=== PATIENT | female | born 1980 | race Caucasian/White ===

== ENCOUNTER 2021-01-05 09:54 | Outpatient (CLI) | payer OTHER, SELFPAY ==
--- NOTE | ~2021-01-05 | MM_ITS ---
EXAMINATION: MM screening sarah BI w misha HISTORY: Screening mammogram TECHNIQUE: Craniocaudal and mediolateral oblique 3-D tomosynthesis images were obtained and synthetic 2-D images were generated. CAD analysis was submitted and interpreted. COMPARISON: 12/21/2019 BREAST PARENCHYMAL COMPOSITION: The breasts are heterogeneously dense, which may obscure small masses . FINDINGS: There is no evidence of suspicious mass, calcification, or architectural distortion to sugg est malignancy in either breast. There has been no suspicious interval change. IMPRESSION: 1. No mammographic evidence of malignancy. 2. Recommend routine screening mammography in one year. BI-RADS Category 1: Negative Reviewed, dictated and finalized at location A. NESS DEVELOPER
== END 2021-01-05 09:55 | disposition home or self-care (01) ==
LOC: ANHIMG 09:57
PROVIDERS: PCP Family Medicine; Visit Provider Obstetrics & Gynecology
DX: Z12.31 Encounter for screening mammogram for malignant neoplasm of breast (principal)
CPT/HCPCS: 77063; 77067

== ENCOUNTER 2022-01-07 08:01 | Outpatient (CLI) | payer OTHER, SELFPAY ==
--- NOTE | ~2022-01-07 | MM_ITS ---
EXAMINATION: MM screening sarah BI w misha HISTORY: Screening TECHNIQUE: Craniocaudal and mediolateral oblique 3-D tomosynthesis images were obtained and synthetic 2-D images were generated. CAD analysis was submitted and interpreted. COMPARISON: Comparison to multiple prior studies sequentially, with oldest reviewed study dated 11/23. BREAST PARENCHYMAL COMPOSITION: The breasts are heterogeneously dense, which may obscure small masses . FINDINGS: There is a developing asymmetry near the areola of the left breast, slightly below the leve l of the nipple on MLO view. The right breast is stable without evidence for malignancy. IMPRESSION: 1. Developing left breast asymmetry. 2. Additional mammographic views and possible breast ultrasound are recommended. BI-RADS Category 0: Incomplete: Needs additional imaging evaluation. Reviewed, dictated and finalized at location A. ACT LENS EDGE BUFFER IMPRESSION: 1. Developing left breast asymmetry. 2. Additional mammographic views and possible breast ultrasound are recommended . BI-RADS Category 0: Incomplete: Needs additional imaging evaluation.
== END 2022-01-07 08:02 | disposition home or self-care (01) ==
PROVIDERS: PCP Family Medicine; Visit Provider Obstetrics & Gynecology
DX: Z12.31 Encounter for screening mammogram for malignant neoplasm of breast (principal); R92.8 Other abnormal and inconclusive findings on diagnostic imaging of breast
CPT/HCPCS: 77063; 77067

== ENCOUNTER 2022-01-25 11:38 | Outpatient (CLI) | payer OTHER, SELFPAY ==
--- NOTE | ~2022-01-25 | MM_ITS ---
EXAMINATION: MM diagnostic sarah LT w misha HISTORY: Left breast asymmetry on screening mammogram TECHNIQUE: Additional 3-D tomosynthesis images of the left breast were performed and synthetic 2-D im ages were generated. CAD analysis was submitted and interpreted. COMPARISON: 01/07/2022, 01/05/2021, 12/21/2019 FINDINGS: There is a return to baseline fibroglandular appearance with spot compression of the left b reast in the area questioned on screening mammogram. IMPRESSION: 1. No mammographic evidence of malignancy. 2. Recommend routine screening mammography in one year. BI-RADS Category 1: Negative Reviewed, dictated and finalized at location A. D PLACEMENT DIRECTOR
== END 2022-01-25 11:39 | disposition home or self-care (01) ==
PROVIDERS: PCP Family Medicine; Visit Provider Obstetrics & Gynecology
DX: R92.8 Other abnormal and inconclusive findings on diagnostic imaging of breast (principal)
CPT/HCPCS: 77061; 77065; G0279

== ENCOUNTER 2023-01-10 08:52 | Outpatient (CLI) | payer OTHER, SELFPAY ==
--- NOTE | ~2023-01-10 | MM_ITS ---
EXAMINATION: MM screening sarah BI w misha HISTORY: Screening mammogram TECHNIQUE: Craniocaudal and mediolateral oblique 3-D tomosynthesis images were obtained and synthetic 2-D images were generated. CAD analysis was submitted and interpreted. COMPARISON: 01/25/2022 diagnostic left mammogram 01/07/2021, 01/05/2021, 12/21/2019 bilateral screening mammogram examinations BREAST PARENCHYMAL COMPOSITION: The breasts are heterogeneously dense, which may obscure small masses . FINDINGS: There is no evidence of suspicious mass, calcification, or architectural distortion to sugg est malignancy in either breast. There has been no suspicious interval change. IMPRESSION: 1. No mammographic evidence of malignancy. 2. Recommend routine screening mammography in one year. BI-RADS Category 1: Negative Reviewed, dictated and finalized at location A. GE HELPER
== END 2023-01-10 08:53 | disposition home or self-care (01) ==
LOC: ANHIMG 08:54
PROVIDERS: PCP Family Medicine; Visit Provider Obstetrics & Gynecology
DX: Z12.31 Encounter for screening mammogram for malignant neoplasm of breast (principal)
CPT/HCPCS: 77063; 77067

== ENCOUNTER 2024-01-13 08:41 | Outpatient (CLI) | payer OTHER, SELFPAY ==
--- NOTE | ~2024-01-13 | MM_ITS ---
EXAMINATION: MM screening sarah BI w misha HISTORY: Screening mammogram, family history of breast cancer in her mother. TECHNIQUE: Craniocaudal and mediolateral oblique 3-D tomosynthesis images were obtained and synthetic 2-D images were generated. CAD analysis was submitted and interpreted. COMPARISON: 01/10/2023, 01/25/2022, 01/07/2022, 01/05/2021 BREAST PARENCHYMAL COMPOSITION:Dense: The breasts are heterogeneously dense, which may obscure small masses. FINDINGS: No suspicious mass, calcification, or architectural distortion are identified in either amado ast to suggest malignancy. There has been no suspicious interval change. IMPRESSION: No mammographic evidence of malignancy. Recommend routine screening mammography in one year. BI-RADS Category 1: Negative Reviewed, dictated and finalized at [facility]. LY DAY CARER
== END 2024-01-13 08:42 | disposition home or self-care (01) ==
LOC: ANHIMG 08:43
PROVIDERS: PCP Family Medicine; Visit Provider Obstetrics & Gynecology
DX: Z12.31 Encounter for screening mammogram for malignant neoplasm of breast (principal)
CPT/HCPCS: 77063; 77067

== ENCOUNTER 2025-01-14 07:16 | Outpatient (CLI) | payer OTHER, SELFPAY ==
--- OUTSIDE RECORDS SUMMARY | 2023-07-25 08:30 | XMS_ITS ---
Author Organization [facility] dicine Address [address] [place] [phone] Care Team Providers Care Tobacco Roller Name Role Phone Dr. Nay Seay Primary Care Provider [phone] REASON FOR VISIT anxiet followup Vital Signs Temperature 98.6 degrees Fahrenheit 07/25/19 24 Blood pressure systolic 122 mm Hg 07/25/19 24 Blood pressure diastolic 76 mm Hg 024 Heart Rate 86 /min 07/25/2023 Respiratory Rate 18 /min 07/25/2023 Weight 157.41 lbs 07/25/2023 Oximetry 97 % 07/25/2023 Weight-kg 71.40 kg 07/25/2023 Encounters Encounter Location Date Provider Diagnosis [address] [address] 07/25/2023 Dr. Nay Seay Pain in left foot M79.672 ; Other physical and mental strain related to work Z56.6 ; Other specified abnormal uterine and vaginal bleeding N93.8 ; Low back pain, unspecified M54.50 ; Other melanin hyperpigmentation L81.4 ; Pain in soft tissues of limb 729.5 ; Unspecified Eustachian tube disorder, bilateral H69.93 ; Vitamin D deficiency, unspecified E55.9 ; Disorder of pigmentation, unspecified L81.9 ; Peritonsillar abscess J36 ; Bitten or stung by nonvenomous insect and other nonvenomous arthropods, initial encounter W57.XXXA ; Anxiety disorder, unspecified F41.9 ; Nasal congestion R09.81 ; Bipolar disorder, currently in remission, most recent episode unspecified F31.70 ; Pneumonia, unspecified organism J18.9 ; Pain in right elbow M25.521 ; Paresthesia of skin R20.2 ; Generalized enlarged lymph nodes R59.1 ; Allergic rhinitis, unspecified J30.9 ; Pain in right foot M79.671 ; Restless legs syndrome G25.81 ; Melanocytic nevi, unspecified D22.9 ; Other fatigue R53.83 ; Neoplasm of uncertain behavior of skin D48.5 ; Shortness of breath R06.02 ; Hyperglycemia, unspecified R73.9 ; Gastro-esophageal reflux disease without esophagitis K21.9 ; Acute upper respiratory infection, unspecified J06.9 ; Encounter for general adult medical examination without abnormal findings Z00.00 and Bronchitis, not specified as acute or chronic J40 Assessments Encounter Date Diagnosis (ICD Code) Assessment Notes Treatment Notes Treatment Clinical Notes Section Notes 07/25/2023 Pain in left foot (ICD-10 - M79.672) 07/25/2023 Other physical and mental strain related to work (ICD-10 - Z56.6) 07/25/2023 Other specified abnormal uterine and vaginal bleeding (ICD-10 - N93.8) 07/25/2023 Low back pain, unspecified (ICD-10 - M54.50) 07/25/2023 Other melanin hyperpigmentation (ICD-10 - L81.4) 07/25/2023 Pain in soft tissues of limb (ICD9-CM - 729.5) 07/25/2023 Unspecified Eustachian tube disorder, bilateral (ICD-10 - H69.93) 07/25/2023 Vitamin D deficiency , unspecified (ICD-10 - E55.9) 07/25/2023 Disorder of pigmentation, unspecified (ICD-10 - L81.9) 07/25/2023 Peritonsillar absces s (ICD-10 - J36) 07/25/2023 Bitten or stung by nonvenomous insect and other nonvenomous arthropods, initial encounter (ICD-10 - W57.XXXA) 07/25/2023 Anxiety disorder, unspecified (ICD-10 - F41.9) 07/25/2023 Nasal congestion (ICD-10 - R09.81) 07/25/2023 Bipolar disorder, currently in remission, most recent episode unspecified (ICD-10 - F31.70) 07/25/2023 Pneumonia, unspecified organism (ICD-10 - J18.9) 07/25/2023 Pain in right elbow (ICD-10 - M25.521) 07/25/2023 Paresthesia of skin (ICD-10 - R20.2) 07/25/2023 Generalized enlarged lymph nodes (ICD-10 - R59.1) 07/25/2023 Allergic rhinitis, unspecified (ICD-10 - J30.9) 07/25/2023 Pain in right foot (ICD-10 - M79.671) 07/25/2023 Restless legs syndrome (ICD-10 - G25.81) 07/25/2023 Melanocytic nevi, unspecified (ICD-10 - D22.9) 07/25/2023 Other fatigue (ICD-1 0 - R53.83) 07/25/2023 Neoplasm of uncertai n behavior of skin (ICD-10 - D48.5) 07/25/2023 Shortness of breath (ICD-10 - R06.02) 07/25/2023 Hyperglycemia, unspecified (ICD-10 - R73.9) 07/25/2023 Gastro-esophageal reflux disease without esophagitis (ICD-10 - K21.9) 07/25/2023 Acute upper respiratory infection, unspecified (ICD-10 - J06.9) 07/25/2023 Encounter for genera l adult medical examination without abnormal findings (ICD-10 - Z00.00) 07/25/2023 Bronchitis, not specified as acute or chronic (ICD-10 - J40) Plan Of Treatment Next Appt Details Provider Name:Dr. Nay abel, 04/01/2025 03:00:00 PM, [address] [place], [address], [phone] Progress Notes * Pankaj MATA:1980 (44 yo F)Acc No.[id number]:07/25/2023 Patient: Tessa Lara Provider: Jessica Seay MD :1980 A ge:42 Y S ex:Female Date:07/25/2023 Phone: Address:[address] [place], [place] [id number] Subjective: * Chief Complaints: * A nxiet followup Objective: * Vitals: B P: 122/76 mm Hg, HR: 86 /min, RR: 18 /min, Temp: 98.6 F, Oxygen sat %: 97 %, Wt: 157.41 lbs, Wt-k.40 kg. Past Vitals:* 07/13/2023 BP: 120/78 mm Hg, HR: 71 /mi n, Oxygen sat %: 99 % * 04/04/2023 BP: 122/80 mm Hg, HR: 76 /mi n, Oxygen sat %: 97 %, Wt: 155.49 lbs, Wt-k.53 kg Assessment: * Assessment: 1. P ain in soft tissues of limb - 729.5 S pecify :Src Diagnosis Name: ( - 729.5) Foot pain 2 . M elanocytic nevi, unspecified - D22.9 S pecify :Src Diagnosis Name: Benign nevus 3 . N eoplasm of uncertain behavior of skin - D48.5 4 . V itamin D deficiency, unspecified - E55.9 5 . B ipolar disorder, currently in remission, most recent episode unspecified - F31.70 6 . A nxiety disorder, unspecified - F41.9 S pecify :Src Diagnosis Name: Anxiety 7 . R estless legs syndrome - G25.81 S pecify :Src Diagnosis Name: RLS (restless legs syndrome) 8 . U nspecified Eustachian tube disorder, bilateral - H69.93 S pecify :Src Diagnosis Name: Dysfunction of both eustachian tubes 9 . A cute upper respiratory infection, unspecified - J06.9 S pecify :Src Diagnosis Name: Upper respiratory infection 1 0. P neumonia, unspecified organism - J18.9 S pecify :Src Diagnosis Name: Pneumonia 1 1. A llergic rhinitis, unspecified - J30.9 S pecify :Src Diagnosis Name: Allergic rhinitis 1 2. P eritonsillar abscess - J36 1 3. B ronchitis, not specified as acute or chronic - J40 S pecify :Src Diagnosis Name: Bronchitis 1 4. G bhavin-esophageal reflux disease without esophagitis - K21.9 ?Specify :Src Diagnosis Name: GERD (gastroesophageal reflux disease) 1 5. O ther melanin hyperpigmentation - L81.4 S pecify :Src Diagnosis Name: Lentigo 1 6. D isorder of pigmentation, unspecified - L81.9 S pecify :Src Diagnosis Name: Atypical pigmented skin lesion 1 7. P ain in right elbow - M25.521 1 8. P ain in right foot - M79.671 S pecify :Src Diagnosis Name: (M79.671 - ) Pain in right foot 1 9. P ain in left foot - M79.672 S pecify :Src Diagnosis Name: (M79.672 - ) Pain in left foot 2 0. O ther specified abnormal uterine and vaginal bleeding - N93.8 S pecify :Src Diagnosis Name: Dysfunctional uterine bleeding 2 1. S hortness of breath - R06.02 2 2. N mary congestion - R09.81 2 3. P aresthesia of skin - R20.2 S pecify :Src Diagnosis Name: Paresthesia 2 4. O ther fatigue - R53.83 S pecify :Src Diagnosis Name: Fatigue 2 5. G eneralized enlarged lymph nodes - R59.1 S pecify :Src Diagnosis Name: Lymphadenopathy 2 6. H yperglycemia, unspecified - R73.9 S pecify :Src Diagnosis Name: Hyperglycemia 2 7. B itten or stung by nonvenomous insect and other nonvenomous arthropods, initial encounter - W57.XXXA S pecify :Src Diagnosis Name: Insect bite 2 8. E ncounter for general adult medical examination without abnormal findings - Z00.00 2 9. O ther physical and mental strain related to work - Z56.6 ? S pecify :Src Diagnosis Name: Work stress 3 0. L ow back pain, unspecified - M54.50 S pecify :Src Diagnosis Name: Low back pain * Electronic signature of Dr. Nay Seay on 01/14/2025 at 07:19 AM AIR BRAKE MAN Sign off status: Pending * Provider: Jessica Seay MD Date: 0 07/25/2023 Generated for Kristie hui/Jakob/eTransmitting on: 03/16/2024 07:19 AM AIR BRAKE MAN
--- OUTSIDE RECORDS SUMMARY | 2023-12-16 08:00 | XMS_ITS ---
Author Organization [facility] dicine Address [address] [place] [phone] Care Team Providers Care Winder Operator Name Role Phone Dr. Nay Seay Primary Care Provider [phone] REASON FOR VISIT 3-4mo f/u Vital Signs Temperature 97.9 degrees Fahrenheit 12/16/19 24 Blood pressure systolic 122 mm Hg 12/16/19 24 Blood pressure diastolic 80 mm Hg 024 Heart Rate 71 /min 12/16/2023 Respiratory Rate 18 /min 12/16/2023 Height 71.00 in 12/16/2023 Weight 151.59 lbs 12/16/2023 BMI 21.14 kg/m2 12/16/2023 Oximetry 99 % 12/16/2023 Height-cm 180.34 cm 12/16/2023 Weight-kg 68.76 kg 12/16/2023 Encounters Encounter Location Date Provider Diagnosis [address] [address] 12/16/2023 Dr. Nay Seay Anxiety disorder, unspecified F41.9 ; Acute atopic conjunctivitis, unspecified eye H10.10 ; Other specified conditions associated with female genital organs and menstrual cycle N94.89 ; Low back pain, unspecified M54.50 ; Insomnia, unspecified G47.00 and Other physical and mental strain related to work Z56.6 Assessments Encounter Date Diagnosis (ICD Code) Assessment Notes Treatment Notes Treatment Clinical Notes Section Notes 12/16/2023 Anxiety disorder, unspecified (ICD-10 - F41.9) 12/16/2023 Acute atopic conjunctivitis, unspecified eye (ICD-10 - H10.10) 12/16/2023 Other specified conditions associated with female genital organs and menstrual cycle (ICD-10 - N94.89) 12/16/2023 Low back pain, unspecified (ICD-10 - M54.50) 12/16/2023 Insomnia, unspecified (ICD-10 - G47.00) 12/16/2023 Other physical and mental strain related to work (ICD-10 - Z56.6) Plan Of Treatment Next Appt Details Provider Name:Dr. Nay abel, 04/01/2025 03:00:00 PM, [address] [place], [address], [phone] Progress Notes * Nafisa MATAaDOB:1980 (44 yo F)Acc No.[id number]:12/16/2023 Progress Notes Patient: Tessa Lara Provider: Jessica Seay MD :1980 A ge:43 Y S ex:Female Date:12/16/2023 Phone: Address:[address] [place], [place] [phone] Subjective: * Chief Complaints: * 3 -4mo f/u Objective: * Vitals: B P: 122/80 mm Hg, HR: 71 /min, RR: 18 /min, Temp: 97.9 F, Oxygen sat %: 99 %, Ht: 71.00 in, Wt: 151.59 lbs, Wt-k.76 kg, Ht-cm: 180.34 cm, BMI: 21.14 Index. Past Vitals:* 07/25/2023 BP: 122/76 mm Hg, HR: 86 /mi n, Oxygen sat %: 97 %, Wt: 157.41 lbs, Wt-k.40 kg * 07/13/2023 BP: 120/78 mm Hg, HR: 71 /mi n, Oxygen sat %: 99 % Assessment: * Assessment: 1. A nxiety disorder, unspecified - F41.9 S pecify :Src Diagnosis Name: Anxiety 2 . I nsomnia, unspecified - G47.00 S pecify :Src Diagnosis Name: Insomnia 3 . A cute atopic conjunctivitis, unspecified eye - H10.10 S pecify :Src Diagnosis Name: Allergic conjunctivitis 4 . O ther specified conditions associated with female genital organs and menstrual cycle - N94.89 S pecify :Src Diagnosis Name: Pelvic congestion syndrome 5 . O ther physical and mental strain related to work - Z56.6 S pecify :Src Diagnosis Name: Work stress 6 . L ow back pain, unspecified - M54.50 S pecify :Src Diagnosis Name: Lumbar back pain * Electronic signature of Dr. Nay Seay on 01/14/2025 at 07:19 AM RUSSIAN HISTORY PROFESSOR Sign off status: Pending * Provider: Jessica Seay MD Date: Generated for Kristie hui/Jakob/Lucianoitting on: 03/16/2024 07:19 AM RUSSIAN HISTORY PROFESSOR
--- OUTSIDE RECORDS SUMMARY | 2024-01-21 03:00 | XMS_ITS ---
Author Organization [facility] dicine Address [address] [place] [address] Care Team Providers Care Secondary School Registrar Name Role Phone Dr. Nay Seay Primary Care Provider [phone] Migration, Provider Unavailable Unavailable REASON FOR VISIT EMR-Oswaldo Encounters Encounter Location Date Provider Diagnosis [facility] [address] [place] [address] 01/21/2024 Provider Migration Plan Of Treatment Medication Medication Name Sig Start Date Stop Date Notes Rizatriptan Benzoate 10 MG Tablet Oral; Duration: 30 11/12/2020 12/11/2020 Baltimore Oil oral; Duration: 0 08/27/2021 11/14/2022 ,disc ontinuereason:D iscontinued *Reorder from [facility] for eRx and Interaction Alerts* Ipratropium [place]pton 0.06 % Solution 1 Nasal three times a day; Duration: 30 08/27/2021 09/02/2021 ,discontinuereason:I nsurance Coverage kllswny-ulva-ywayj-oreg -capryl oral; Duration: 0 08/27/2021 11/14/2022 ,discontinuere ason:D iscontinued *[facility]order from [facility] for eRx and Interaction Alerts* Multivitamin oral; Duration: 0 10/16/2020 11/14/2022 ,disc ontinuereason:D iscontinued *Pick strength-form from [facility] for eRX* Naprosyn 500 MG Tablet 1 Oral two times a day; Duration: 0 02/12/2022 11/14/2022 ,discontinuereason:D iscontinued Pantoprazole Sodium 40 MG Tablet Delayed Release 1 Oral every day; Duration: 30 08/27/2021 01/18/2022 ,discontinuereason:D iscontinued Azithromycin 250 MG Tablet Oral every day; Duration: 1 03/28/2023 03/28/2023 dexAMETHasone 6 MG Tablet 1 Oral every day; Duration: 3 03/28/2023 03/30/2023 Tretinoin 0.05 % Cream External; Duratio n: 20 10/08/2022 10/27/2022 Probiotic oral; Duration: 0 10/16/2020 11/14/2022 ,discon tinuereason:D iscontinued *Pick strength-form from [employer] for eRX* Apple Cider Vinegar oral; Duration: 0 10/16/2020 ,discontinuereason:D iscontinued *Pick strength-form from [facility] for eRX* clonazePAM 0.5 MG Tablet 1 Oral two times a day; Duration: 11/11/2023 11/11/2023 Rx Refill Request,discontinuer sandy:Refilled Fluticasone Propionate 50 MCG/ACT Suspension Nasal; Duration: 30 08/08/2023 10/06/2023 Cranberry oral; Duration: 0 10/16/2020 11/14/2022 ,discon tinuereason:D iscontinued *Pick strength-form from [employer] for eRX* busPIRone HCl 5 MG Tablet 1 Oral three times a day; Duration: 30 11/15/2022 12/23/2022 ,discontinuereason:A llergic Reaction,PRN Reason:for anxiety Gabapentin 100 MG Capsule 1 Oral every night at bedtime; Duration: 30 02/12/2022 07/28/2022 ,discontinuereason:D iscontinued Azelastine HCl 137 MCG/SPRAY Solution Nasal; Duration: 30 10/12/2021 11/10/2021 Vitamin D2 oral; Duration: 0 10/16/2020 11/14/2022 ,discon tinuereason:D iscontinued *Pick strength-form from [employer] for eRX* Mirena intrauterine; Duration: 0 10/16/2020 10/19/2020 ,discontinuereason:D iscontinued *Reorder from [facility] for eRx and Interaction Alerts* Symbicort 160-4.5 MCG/ACT Aerosol 1 Inhalation two times a day; Duration: 0 04/06/2023 07/24/2023 ,discontinuereason:D iscontinued Benzonatate 200 MG Capsule 1 Oral three times a day; Duration: 0 03/28/2023 03/28/2023 ,PRN Reason:for cough Next Appt Details Provider Name:Dr. Nay abel, 04/01/2025 03:00:00 PM, [address] [place], [address], [phone] Progress Notes * Alaina MATAB:1980 (44 yo F)Acc No.[id number]:01/21/2024 Patient: Tessa BURROWS :1980 A ge:43 Y S ex:Female Phone: Address:[address] [place] [address], [phone] * Refills Stop Azelastine HCl Solution, 137 MCG/SPRAY, Nasal, 1, 0 Stop clonazePAM Tablet, 0.5 MG, Oral, 30, 1, two times a day, 15 Stop Fluticasone Propionate Suspension, 50 MCG/ACT, Nasal, 16, 30 Stop Benzonatate Capsule, 200 MG, Oral, 30, 1, three times a day, 0 Stop clonazePAM Tablet, 0.5 MG, Oral, 90, 1, two times a day, 90 Stop clonazePAM Tablet, 0.5 MG, Oral, 30, 1, two times a day, 30 Stop clonazePAM Tablet, 0.5 MG, Oral, 30, 1, two times a day, 30 Stop Fluticasone Propionate Suspension, 50 MCG/ACT, Nasal, 0 Stop Fluticasone Propionate Suspension, 50 MCG/ACT, Nasal, 1, 1, two times a day, 30 Stop Gabapentin Capsule, 100 MG, Oral, 30, 1, every night at bedtime, 30 Stop Tretinoin Cream, 0.05 %, External, 1, every day, 0 Stop Mirena, intrauterine, 0 Stop Azelastine HCl Solution, 137 MCG/SPRAY, Nasal, 30, 30 Stop Fluticasone Propionate Suspension, 50 MCG/ACT, Nasal, 16, 30 Stop Azithromycin Tablet, 250 MG, Oral, 6, every day, 1 Stop clonazePAM Tablet, 0.5 MG, Oral, 30, 1, two times a day, 30 Stop Rizatriptan Benzoate Tablet, 10 MG, Oral, 11, 1, 0 Stop clonazePAM Tablet, 0.5 MG, Oral, 90, 1, two times a day, 90 Stop Cranberry, oral, 0 Stop dexAMETHasone Tablet, 6 MG, Oral, 3, 1, every day, 3 Stop Naprosyn Tablet, 500 MG, Oral, 28, 1, two times a day, 14 Stop Naprosyn Tablet, 500 MG, Oral, 60, 1, two times a day, 0 Stop Pantoprazole Sodium Tablet Delayed Release, 40 MG, Oral, 30, 1, every day, 30 Stop Tretinoin Cream, 0.05 %, External, 20, 20 Stop Multivitamin, oral, 0 Stop [place] Oil, oral, 0 Stop jznuejb-pdyj-zaxvq-oreg-capryl, oral, 0 Stop busPIRone HCl Tablet, 5 MG, Oral, 90, 1, three times a day, 30 Stop clonazePAM Tablet, 0.5 MG, Oral, 0 Stop Fluticasone Propionate Suspension, 50 MCG/ACT, Nasal, 16, 30 Stop Tretinoin Cream, 0.05 %, External, 20, 20 Stop clonazePAM Tablet, 0.5 MG, Oral, 90, 1, two times a day, 90 Stop Fluticasone Propionate Suspension, 50 MCG/ACT, Nasal, 16, 30 Stop Ipratropium Campton Solution, 0.06 %, Nasal, 1, 1, three times a day, 30 Stop Rizatriptan Benzoate Tablet, 10 MG, Oral, 11, 30 Stop Vitamin D2, oral, 0 Stop Apple Cider Vinegar, oral, 0 Stop Fluticasone Propionate Suspension, 50 MCG/ACT, Nasal, 16, 30 Stop Probiotic, oral, 0 Stop clonazePAM Tablet, 0.5 MG, Oral, 30, 1, two times a day, 30 Stop clonazePAM Tablet, 0.5 MG, Oral, 90, 1, two times a day, 90 Stop clonazePAM Tablet, 0.5 MG, Oral, 90, 1, two times a day, 90 Stop Fluticasone Propionate Suspension, 50 MCG/ACT, Nasal, 1, 1, two times a day, 30 Stop Symbicort Aerosol, 160-4.5 MCG/ACT, Inhalation, 1, 1, two times a day, 0 Subjective: * Chief Complaints: * E MR-Oswaldo Objective: Past Vitals:* 12/16/2023 BP: 122/80 mm Hg, HR: 71 /mi n, Oxygen sat %: 99 %, Wt: 151.59 lbs, Wt-k.76 kg * 07/25/2023 BP: 122/76 mm Hg, HR: 86 /mi n, Oxygen sat %: 97 %, Wt: 157.41 lbs, Wt-k.40 kg * * Date:
--- OUTSIDE RECORDS SUMMARY | 2024-01-22 03:00 | XMS_ITS ---
Author Organization [facility] Address [address] [place] [address] Care Team Providers Care Box Packer Name Role Phone Dr. Nay Seay Primary Care Provider [phone] Migration, Provider Unavailable Unavailable Allergies Allergen (clinical drug ingredient) Drug/Non Drug Allergy documented on EMR Reaction Allergy Type Onset Date Status buspirone busPIRone headache Drug Allergy 12/23/2022 Active Substance with penicillin structure and antibacterial mechanism of action (substance) Penicillins Unknown Drug Allergy 10/16/2020 Active REASON FOR VISIT EMR-[facility] Medications Medication SIG (Take, Route, Frequency, Duration) Notes Start Date End Date Status Doxepin HCl 10 MG Capsule 1 Oral every e vening; Duration: 30 12/16/2023 03/14/2024 Active Olopatadine HCl 0.2 % Solution 1 Ophthalmic every day; Duration: 0 12/16/2023 Active Fluticasone Propionate 50 MCG/ACT Suspension Nasal; Duration: 0 12/16/2023 Act chema clonazePAM 0.5 MG Tablet 1 Oral two time s a day; Duration: 15 01/18/2024 02/01/2024 Active Social History Social History Additional Details Category Social Info Options Details Migrated Social History Migrated Social History Tobacco history:Current every day smoker ,notes : Smoking again in 2022 , Frequency of drinks:1-4 drinks per week , Alcohol history:Currently drinks alcohol , Has the patient used marijuana?:Yes ,notes : current , Number of cigarettes/day:10 (Half a pack) ,notes : Delete Reason: quit smoking Jan 12 Encounters Encounter Location Date Provider Diagnosis [facility] [address] [place] [address] 01/22/2024 Provider Migration Plan Of Treatment Next Appt Details Provider Name:Dr. Nay abel, 04/01/2025 03:00:00 PM, [address] [facility], [place], [address], [phone] Progress Notes * Alaina MATAB:1980 (44 yo F)Acc No.[id number]:01/22/2024 Patient: Tessa BURROWS :1980 A ge:43 Y S ex:Female Phone: Address:[address] [place] [address], [phone] Subjective: * Chief Complaints: * E MR-Oswaldo * Surgical History: Hernia repair 05/24/2016 Mammogram 12/21/2019 * Family History: M other: Cancer ,Notes : breast cancer. * Social History: M igrated Social History: M igrated Social History: Tobacco history:Current every day smoker ,notes : Smoking again in 2022,Frequency of drinks:1-4 drinks per week,Alcohol history:Currently drinks alcohol,Has the patient used marijuana?:Yes ,notes : current,Number of cigarettes/day:10 (Half a pack) ,notes : Delete Reason: quit smoking Jan 12. * Medications: T akingclonazePAM 0.5 MG Tablet 1 Oral two times a day , stop date 4Doxepin HCl 10 MG Capsule 1 Oral every evening , stop date 03/14/2024Olopatadine HCl 0.2 % Solution 1 Ophthalmic every day Fluticasone Propionate 50 MCG/ACT Suspension Nasal Taking clonazePAM 0.5 MG Tablet 1 Oral two times a day , stop date 02/01/2024Taking Doxepin HCl 10 MG Capsule 1 Oral every evening , stop date 03/14/2024Taking Olopatadine HCl 0.2 % Solution 1 Ophthalmic every day Taking Fluticasone Propionate 50 MCG/ACT Suspension Nasal * Allergies: b usPIRone: headache - Allergy - Onset Date 3Penicillins: Allergy - Onset Date 10/16/2020 Objective: Past Vitals:* 12/16/2023 BP: 122/80 mm Hg, HR: 71 /mi n, Oxygen sat %: 99 %, Wt: 151.59 lbs, Wt-k.76 kg * 07/25/2023 BP: 122/76 mm Hg, HR: 86 /mi n, Oxygen sat %: 97 %, Wt: 157.41 lbs, Wt-k.40 kg * * Date:
--- NOTE | ~2025-01-14 | MM_ITS ---
EXAMINATION: MM screening sarah BI w misha HISTORY: Screening TECHNIQUE: Craniocaudal and mediolateral oblique 3-D tomosynthesis images were obtained and synthetic 2-D images were generated. CAD analysis was submitted and interpreted. COMPARISON: Comparison to multiple prior studies sequentially, with oldest reviewed study dated 12/21/2019. BREAST PARENCHYMAL COMPOSITION: Dense: The breasts are heterogeneously dense, which may obscure small masses FINDINGS: There are developing clustered indeterminate calcifications in the upper outer quadrant of the right breast, middle third. No suspicious masses or architectural distortion. The left breast is stable without evidence for malignancy. IMPRESSION: 1. Developing clustered indeterminate right breast calcifications, upper outer quadrant, middle third. 2. Magnification views are recommended. BI-RADS Category 0: Incomplete: Needs additional imaging evaluation. Reviewed, dictated and finalized at location O. BIN TENDER
--- OUTSIDE RECORDS SUMMARY | 2025-01-14 07:19 | XMS_ITS | Clinical Summary ---
Author Organization [facility] Address [address] [place] [address] Care Team Providers Care Ship'S Electronic Warfare Officer Name Role Phone Unavailable Primary Care Provider Unavailabl e Source Comments [facility],non-owned Affiliates and Associated Physician Practices is amultiple site organization consisting of ambulatory clinics and hospital sitesin [place], [place], [place] and [place]. This disclosure is being madepursuant to the Care Everywhere program and may not contain all information available regarding this patient. 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 Gender Identity Not on file Sexual Orientation Not on file Plan of Treatment Health Maintenance Due Date Last Done Comments COLOGUARD (AGES 45-75) - COL ON CA SCREENING 1980 COLON MONITORING 1978 COLONOSCOPY - COLON CA SCREENING 1978 CT COLONOGRAPHY - COLON CA SCREENING 1980 Colorectal Cancer Screening 1980 FIT - COLON CA SCREENING 1978 FLEX SIG - COLON CA SCREENING 1978 LIPID TESTING 1980 MAMMOGRAM 1978 HIV SCREENING 1993 HEPATITIS C SCREENING 07/31/1996 DTAP/TDAP/TD VACCINES (1 - Tdap) 1997 HEPATITIS B VACCINE (1 of 3 - 19+ 3-dose series) 1997 Cervical Cancer Screening 08/06/1999 PAP SMEAR 08/06/1999 PAP with HPV 2008 DEPRESSION SCREENING 02/22/2024 COVID-19 VACCINE (1 - 2024-2 6 season) 2024 INFLUENZA VACCINE (#1) 2024 ZOSTER VACCINE (1 of 2) 2028 HIB VACCINE Aged Out No longer eligi ble based on patient's age to complete this topic HPV VACCINE Aged Out No longer eligi ble based on patient's age to complete this topic MENINGOCOCCAL (Group B) VACC INE SHARED DECISION-MAKING Aged Out No longer eligibl e based on patient's age to complete this topic MENINGOCOCCAL GROUPS A/C/Y/W VACCINE Aged Out No longer eligible b ased on patient's age to complete this topic PNEUMOCOCCAL VACCINE Aged Out No long er eligible based on patient's age to complete this topic Insurance
--- OUTSIDE RECORDS SUMMARY | 2025-01-14 07:19 | XMS_ITS | Patient Health Record ---
Author Organization [facility] dicine Address [address] [place] [address] Care Team Providers Care Certified Surgical Technologist Name Role Phone Dr. Nay Seay Primary Care Provider [phone] Migration, Provider Unavailable Unavailable Allergies Allergen (clinical drug ingredient) Drug/Non Drug Allergy documented on EMR Reaction Allergy Type Onset Date Status buspirone busPIRone headache Drug Allergy 12/23/2022 Active Substance with penicillin structure and antibacterial mechanism of action (substance) Penicillins Unknown Drug Allergy 10/16/2020 Active Results Component Value Reference Range Flag Notes INACTIVE Morphology Reviewed date:10/06/2024 01:41:28 PM Interpretation: Performing Lab: Notes/Report: Test Performed by: [place] [id number] Retail Beauty Specialist: Don Michele DO Plt Estimation Adequate Adequate Platelet Clumps 3+ A Hemoglobin A1c {Glycosylated } Reviewed date:10/06/2024 01:41:27 PM Interpretation: Performing Lab: Notes/Report: Test Performed by: [address] [id number] Retail Beauty Specialist: Don Michele DO Hemoglobin A1c 5.3 <=6.4 % Hemoglobin A1C < 5.7% = Normal 5.7-6.4% = Increased risk for future diabetes >=6.5% = Diabetes eAvg Glucose 105 <=117 mg/dL eAG Reference Range <117 mg/dL = Normal 117-137 mg/dL = Increased Risk For Future Diabetes >137 mg/dL = Diabetes T4 Free Reviewed date:10/06/2024 01:41:27 PM Interpretation: Performing Lab: Notes/Report: Test Performed by: [place] [id number] Retail Beauty Specialist: Don Michele DO T4 Free 0.85 0.60-1.70 ng/dL CBC w Auto Diff Reviewed date:10/06/2024 01:41:27 PM Interpretation: Performing Lab: Notes/Report: Test Performed by: [place] [id number] Retail Beauty Specialist: Don Michele DO WBC 5.1 4.0-11.7 K/mcL RBC 4.66 3.80-5.41 x10*6/mcL Hgb 14.8 11.3-15.2 g/dL Hct 43.6 33.2-45.3 % MCV 93.5 79.5-98.1 fL MCH 31.8 27.0-34.2 pg MCHC 34.0 31.8-35.3 g/dL RDW 12.6 12.0-16.4 % Platelets Not Performed 149-393 Quantitative platelet count not reported due to the presence of many platelet clumps, which tend to render the total count un-sales support representative of in vivo levels. Suggest redraw in a Blue-Top tube. MPV Not Performerd 7.0-11.0 fL Neutro Auto 43.0 45.3-79.0 % L Lymph Auto 45.6 11.8-45.9 % [place] Auto 7.7 4.4-12.0 % Eosinophil Auto 2.4 0.0-6.3 % Basophil Auto 1.3 0.2-1.6 % Neutro Absolute 2.2 2.4-8.4 x10*3/mcL L Lymph Absolute 2.3 0.8-3.7 x10*3/mcL [place] Absolute 0.4 0.3-1.1 x10*3/mcL Eos Absolute 0.1 0.0-0.5 x10*3/mcL Baso Absolute 0.1 0.0-0.1 x10*3/mcL Comprehensive Metabolic Pane l Reviewed date:10/06/2024 01:41:27 PM Interpretation: Performing Lab: Notes/Report: Test Performed by: [address] [address] Retail Beauty Specialist: Don Michele DO Glucose Lvl 81 74-109 mg/dL ADA risk stratification for diabetes <100 mg/dL = Normal 100-125 mg/dL = Increased risk for future diabetes >=126 mg/dL = Diabetes, if on more than one testing occasion BUN 16 7-25 mg/dL Creatinine Lvl 0.83 0.60-1.20 mg/dL eGFR CKD-EPI 88 >=90 mL/min/1.73 m2 L The CKD-EPI equation is validated in individuals 18 years of age and older. It is less accurate in patients with extremes of muscle mass, restriction of dietary protein, ingestion of creatine, extra-renal metabolism of creatinine, or treatment with medications that affect renal tubular creatinine secretion. GFR Categories in Chronic Kidney Disease (CKD) GFR GFR (mL/min/1.73 Category: square meters): Interpretation: G1 90 or greater Normal or high* G2 60-89 Mild decrease* G3a 45-59 Mild to moderate decrease G3b 30-44 Moderate to severe decrease G4 15-29 Severe decrease G5 14 or less Kidney failure *In the absence of evidence of kidney damage, neither GFR category G1 nor G2 fulfill the criteria for CKD (Kidney Int Suppl 2013;3:1-150) Calcium Lvl 9.3 8.6-10.3 mg/dL Sodium Lvl 138 136-145 mmol/L Potassium Lvl 4.3 3.5-5.1 mmol/L Chloride Lvl 105 98-107 mmol/L CO2 28 21-31 mmol/L Anion Gap 5.4 <=16.0 mmol/L Alk Phos 23 34-104 unit/L L Bilirubin Total 1.0 0.3-1.0 mg/dL Albumin Lvl 4.4 3.5-5.2 g/dL Protein Total 6.4 6.4-8.9 g/dL Albumin/Globulin Ratio 2.2 1.1-2.5 ALT 11 7-52 unit/L AST 18 13-39 unit/L Lipid Panel {Chol, Trig, HDL , LDL} Reviewed date:10/06/2024 01:41:27 PM Interpretation: Performing Lab: Notes/Report: Test Performed by: [place] [address] Retail Beauty Specialist: Don Michele DO Cholesterol Total 191 <=199 mg/dL Triglycerides 52 0-149 mg/dL Triglyceride Reference Ranges: <150 mg/dL Normal 150 - 199 mg/dL Borderline High 200 - 499 mg/dL High >=500 mg/dL Very High LDL 106 <=100 mg/dL H LDL Optimal: <100 Near or above optimal: 100-129 Borderline high: 130-159 High: 160-189 Very high: >=190 Coronary heart disease risk factors should be considered when determining LDL goals. Please refer to ATPIII guidelines for further information. If LDL is not calculated, please call the lab to add on the direct LDL methodology, if desired. HDL 75 23-92 mg/dL Non HDL Cholesterol 117 <=130 mg/dL Chol/HDL 3 0-5 Thyroid Stimulating Hormone Reviewed date:10/06/2024 01:41:27 PM Interpretation: Performing Lab: Notes/Report: Test Performed by: [place] [address] Retail Beauty Specialist: Don Michele DO TSH 1.28 0.45-5.33 mcIU/mL Reason For Referral Reason Dr. Felix in [facility] please - updated today 11/05 with pt's choice Diagnosis 1 Screening for colon cancer (Z12.11) Referral Organization [facility] Referring Provider First Name Dr. Tee Referring Provider Last Name [place] Referring Provider [facility] Referred Provider Specialty Gastroentero logy General Notes Adelita Bauman 0 11/05/2024 02:46:25 PM CDT >Referral faxed to Dr. Felix [phone], Josey Doss 12/25/2024 09:18:59 AM [employer] >consult note in chart. Referral Priority Routine Referral Appointment Date 12/25/2024 Medications Medication SIG (Take, Route, Frequency, Duration) Notes Start Date End Date Status buPROPion HCl ER (XL) 150 MG Tablet Extended Release 24 Hour TAKE 1 TABLET BY MOUTH EVERY DAY IN THE MORNING; Duration: 90 Active clonazePAM 0.5 MG Tablet 2 tablets in the morning Orally Once a day; Duration: 30 days change in directions for next RF. 10/10/2024 Active Fluticasone Propionate 50 MCG/ACT Suspension 1 spray in each nostril Nasal Twice a day; Duration: 90 days Active Immunizations Vaccine Route Administration Date Status Comme nts Tdap Unknown 02/22/2009 Administered ,sourcename : Historical information -from other registry Source [facility] Code: : Tdap Unknown 05/23/2020 Administered ,sourcename : Historical information -from other registry Source [facility] Code: : Social History Tobacco Use: Social History Observation Description Date Details (start date - stop date) Current Smoker NA - NA Social History Drug/Alcohol: Social Info Question Answer Notes AUDIT-C (Standard) Did you have a drink containing alcohol in the past year? Yes How often did you have a drink containing alcohol in the past year? Monthly or less (1 point) How many drinks did you have on a typical day when you were drinking in the past year? 1 or 2 drinks (0 point) How often did you have six or more drinks on one occasion in the past year? Never (0 point) Points 1 Interpretation Negative Tobacco Use: Social Info Question Answer Notes Tobacco Control (Standard) Tobacco use: Current smoker How often do you smoke cigarettes? Every day How many cigarettes a day do you smoke? 6-10 Are you interested in quitting? Thinking about quitting Additional Details Category Social Info Options Details Drug/Alcohol: Do you smoke marijuana? Adm its Problems Problem Type SNOMED Code ICD Code Onset Dates Problem Status W/U Status Risk Notes Problem Dysmenorrhea (651488671) Dysmenorrhea, unspecified (N94.6) 4 Active confirmed Problem Normal body mass index (93276480) Body mass index (BMI) 22.0-22.9, adult (Z68.22) 3 Active confirmed Problem Low back pain (374108075) Low back pain, unspecified (M54.50) 4 Active confirmed Problem Tobacco use (434925383) Tobacco use (Z72.0) 3 Active confirmed Problem Stress at work (finding) (266110271) Other physical and mental strain related to work (Z56.6) 3 Active confirmed Problem Disorder of female genital organs (375742250) Other specified conditions associated with female genital organs and menstrual cycle (N94.89) 4 Active confirmed Problem Abnormal vaginal bleeding (385030435) Other specified abnormal uterine and vaginal bleeding (N93.8) 4 Active confirmed Problem Allergic rhinitis (24649728) Allergic rhinitis, unspecified (J30.9) 7 Active confirmed Problem Insomnia (470190259) Insomnia, unspecified (G47.00) 4 Active confirmed Problem Migraine with aura (4829928) Migraine with aura, not intractable, without status migrainosus (G43.109) 1 Active confirmed Problem Restless legs syndrome (94933973) Restless legs syndrome (G25.81) 2 Active confirmed Problem Anxiety disorder (408878310) Anxiety disorder, unspecified (F41.9) 2 Active confirmed Problem Generalized anxiety disorder (02549282) Generalized anxiety disorder (F41.1) 3 Active confirmed Problem Tobacco user (409118575) Vaping nicotine dependence, tobacco product (F17.290) Active confirmed Vital Signs Heart Rate 82 /min 11/05/2024 Temperature 98.1 degrees Fahrenheit 11/05/2024 Respiratory Rate 18 /min 11/05/2024 Blood pressure diastolic 86 mm Hg 11/05/2024 Oximetry 97 % 11/05/2024 Height-cm 180.34 cm 11/05/2024 Weight-kg 68.04 kg 11/05/2024 Height 71.00 in 11/05/2024 Blood pressure systolic 108 mm Hg 11/05/2024 Weight 150 lbs 11/05/2024 BMI 20.92 kg/m2 11/05/2024 Procedures Procedure Date Ordered Date Performed Result Body Sit e Colonoscopy 12/25/2024 12/25/2024 N/A Encounters Encounter Location Date Provider Diagnosis [address] [address] 04/11/2024 Dr. Nay Seay Chronic allergic rhinitis J30.9 ; Anxiety disorder, unspecified F41.9 ; Lumbar spondylosis M47.816 and Vaping nicotine dependence, tobacco product F17.[address] [address] 07/09/2024 Dr. Nay Seay Anxiety disorder, unspecified F41.9 ; Inflamed seborrheic keratosis L82.0 and Neoplasm of uncertain behavior of skin D48.[address] [address] 10/10/2024 Dr. Nay Seay Anxiety disorder, unspecified F41.9 ; Severe depression F32.2 ; Family history of cancer Z80.9 ; Tobacco abuse Z72.0 ; Screening for colon cancer Z12.11 and Migraine with aura, not intractable, without status migrainosus G43.[address] [address] 11/05/2024 Dr. Nay Seay Generalized anxiety disorder F41.1 ; Allergic rhinitis, unspecified J30.9 ; Donato angioma D18.01 and Decreased libido R68.[address] [address] 01/21/2024 Provider Migration [address] [address] 01/22/2024 Provider Migration [address] [address] 02/10/2024 Dr. Nay Seay Generalized anxiety disorder F41.[address] [address] 03/27/2024 Dr. Nay Seay Generalized anxiety disorder F41.[address] [address] 04/12/2024 Dr. Nay Seay [address] [address] 07/02/2024 Dr. Nay Seay Generalized anxiety disorder F41.[address] [address] 10/05/2024 Dr. Nay Seay Hyperglycemia, unspecified R73.9 and Encounter for general adult medical examination without abnormal findings Z00.00 Assessments Encounter Date Diagnosis (ICD Code) Assessment Notes Treatment Notes Treatment Clinical Notes Section Notes 10/05/2024 Hyperglycemia, unspecified (ICD-10 - R73.9) 10/05/2024 Encounter for general adult medical examination without abnormal findings (ICD-10 - Z00.00) 10/10/2024 Anxiety disorder, unspecified (ICD-10 - F41.9) 42 mins spent face to face. 10/10/2024 Severe depression (ICD-10 - F32.2) 03/27/2024 Generalized anxiety disorder (ICD-10 - F41.1) 04/11/2024 Anxiety disorder, unspecified (ICD-10 - F41.9) no change in treatment.; Never took the doxepin. continues on clonazepam. 04/11/2024 Chronic allergic rhinitis (ICD-10 - J30.9) 07/02/2024 Generalized anxiety disorder (ICD-10 - F41.1) 07/09/2024 Anxiety disorder, unspecified (ICD-10 - F41.9) continue clonazpam. 07/09/2024 Inflamed seborrheic keratosis (ICD-10 - L82.0) 11/05/2024 Generalized anxiety disorder (ICD-10 - F41.1) 11/05/2024 Allergic rhinitis, unspecified (ICD-10 - J30.9) 02/10/2024 Generalized anxiety disorder (ICD-10 - F41.1) 11/05/2024 Donato angioma (ICD-10 - D18.01) 07/09/2024 Neoplasm of uncertain behavior of skin (ICD-10 - D48.5) 04/11/2024 Lumbar spondylosis (ICD-10 - M47.816) 10/10/2024 Family history of cancer (ICD-10 - Z80.9) 10/10/2024 Tobacco abuse (ICD-10 - Z72.0) 04/11/2024 Vaping nicotine dependence, tobacco product (ICD-10 - F17.290) 11/05/2024 Decreased libido (ICD-10 - R68.82) 10/10/2024 Screening for colon cancer (ICD-10 - Z12.11) 10/10/2024 Migraine with aura, not intractable, without status migrainosus (ICD-10 - G43.109) 04/11/2024 Other Lower Back Pain - Chronic lower back pain likely due to mild scoliosis and mild anterolisthesis of L5 and S1, with a possible L5 pars defect. Previous imaging showed these conditions. - Recommend yoga for core strengthening and flexibility. Start mobic for use on bad days. Consider muscle relaxer for severe days. Suggest heat pad for stiffness. - Patient uses Epsom salt baths and exercises remembered from past therapy sessions for relief. Allergies and Ear Symptoms - Possible uncontrolled allergies or silent acid reflux causing ear crackling and popping. Nasal examination suggests allergic rhinitis. - Prescribe Singulair to be taken at night. Continue current allergy pill and nasal spray. - Risks and side effects: Discussed potential for nightmares or feeling different with Singulair. - Consider mold exposure at work as a contributing factor to ear symptoms. Eye Dryness - Dry eyes causing discomfort. - Suggest pnjs-kby-pbdouoo eye drops as an alternative to the non-covered prescription. - Patient continues to use Blink eye drops for relief. Smoking - Smoking increases cancer risk due to free radicals. - Encourage reduction or cessation of smoking/vaping. Mammogram - Recent mammogram in December showed category 1 negative results. - No further action required until next scheduled mammogram. Recommend due to her concern about things in vitamins like titanium dioxide, suggest she visit [facility] for comparable vitamins. 07/09/2024 Other Spot on the back of the leg: - The spot on the back of the leg does not appear to be squamous cell carcinoma or BCC. It resembles a slightly raised seborrheic keratosis. - Continue using hydrocortisone cream. Monitor the spot, and if it does not clear up, consider a biopsy. Scalp lesion - The scalp lesion is not healing properly and has developed a cutaneous horn-like growth. There is a concern for a possible staph or strep infection due to a chronic open wound vs atypical squamous lesion that needs more definitive biopsy. - Recommend returning to the tip scourer for further evaluation and possible re-biopsy. If the tip scourer does not address the issue, consider having the lesion removed and sent for biopsy at our facility. The lesion may need to be shaved off and cauterized. Allergies - Possible allergies to trees, especially in the spring, causing throat discomfort and other symptoms. - Continue using Flonase daily. Consider allergy testing at [facility] in [place] if symptoms persist and are bothersome. - Risks and side effects: Allergy shots may involve cost and time commitment. Medication review - Continuation of current medications, including clonazepam, with no changes. - Continue current medication regimen. Follow-up in 3 months for medication check. Lab work - Due for lab work. Pt requested checking labs next visit. 10/10/2024 Other Pt to report back where colonoscopy needs to be. - Dr. Felix or Dr. Hunter start wellbutrin [facility]. increase clonazepam to 0.5 mg 1.5 tablets po every morning. Migraine: - Migraine with visual aura, including blind spot, zigzag, and bright colors. Headache not attributed to hypertension; tension-type headache also considered due to stress. - Provided sample of Nurtec (rimegepant) for acute migraine treatment. Instructed to take at onset of visual aura or migraine symptoms, ideally as soon as symptoms begin and not to wait until headache is severe. - Nurtec is a dissolvable tablet, with onset of action in 20-30 minutes. If effective, may consider prescription for additional tablets, which may last a long time due to infrequent attacks. - Episodic treatment recommended due to infrequent migraines. Will monitor response to Nurtec and consider further options if ineffective. - Discussed that tension headache from stress is also possible. - Risks and side effects: Discussed potential for headache and mild nausea as possible side effects of Nurtec, though uncommon. Anxiety and depression with obsessive thoughts, mood lability, and anhedonia: - Significant anxiety and depressive symptoms, including obsessive thoughts, mood swings, anhedonia, and intrusive cancer-related fears. Symptoms attributed to a combination of situational stressors and neurochemical imbalance. Tolerance to current clonazepam regimen noted. - Prescribed bupropion XL 150 mg daily in the morning to address mood symptoms, anxiety, and assist with nicotine dependence. Explained that bupropion is weight neutral, may improve mood, energy, and obsessive thoughts, and can help with smoking cessation. - Advised to continue clonazepam, with option to increase morning dose to 1.5 tablets and up to 2 tablets if needed, with instructions to limit to 2 tablets daily. Discussed that increasing dose is temporary while adjusting to new medication. - Ordered PHQ-9 and LISBET-7 for further assessment before leaving today. Both show severe levels of symptoms. - Scheduled follow-up in 2-4 weeks to monitor response and tolerability, can be telemedicine if preferred. Advised to report any adverse effects, including headache, jitteriness, or shakiness. - Discussed that bupropion may increase sensitivity to alcohol. Instructed not to combine clonazepam with alcohol. Smoking/vaping and nicotine dependence: - Ongoing nicotine dependence with recent cessation of vaping and continued cigarette use. Nicotine use contributing to anxiety and cancer risk. - Recommended bupropion as pharmacologic aid for smoking cessation. Advised that bupropion may reduce cravings and facilitate cessation. Encouraged to continue efforts to quit smoking, as this is the most important step for cancer risk reduction. Cancer risk and cancer-related health anxiety: - Elevated health anxiety related to family cancer history and recent maternal cancer diagnoses. No evidence of current malignancy. Anxiety exacerbated by situational stressors and obsessive thoughts. - Recommended advanced breast cancer screening with annual mammogram and breast MRI, as coordinated by double back operator. Provided reassurance regarding normal laboratory results and absence of current cancer indicators. - Discussed dietary recommendations to lower colon cancer risk: limit red meat to twice a week, increase chicken, vegetables, fish, and fiber intake (including fiber supplements if needed). - Explained importance of regular eating for brain function and mood stabilization. - Encouraged to pursue colonoscopy for additional reassurance and cancer screening. Colon cancer screening: - Due for colonoscopy based on age and family history. Colonoscopy recommended as most effective screening modality for colon cancer. - Will refer for colonoscopy, Advised to avoid Cologuard and proceed with colonoscopy for optimal accuracy and reassurance. - Explained bowel preparation process (high dose Miralax or other prep) and sedation (IV Versed and pain medicine, not general anesthesia). - Office will coordinate referral and scheduling; patient will be contacted by provider's office for details. - Colonoscopy will provide reassurance and early detection; recommended as life-saving screening test. Laboratory results: - Reviewed all recent laboratory results in detail. Explained that low neutrophils and alkaline phosphatase are not concerning, total white blood cell count is normal, kidney and liver function are normal, cholesterol profile is favorable, and platelet clumping is a lab artifact. - Provided reassurance that no current lab findings suggest malignancy or other serious illness. - Encouraged patient to reach out via portal message for any questions or concerns, including colonoscopy referral preferences. 11/05/2024 Other Anxiety and mood disorder: - Significant improvement in anxiety and mood symptoms with bupropion; patient noted improvement in mood and energy within 5 days of starting medication - Reports feeling mentally quiet, happier, less bothered by stressors, and more focused; no longer obsessing over mother's cancer - LISBET-7 score improved from severe (20) to 0, providing objective evidence of progress - Continue bupropion 150 mg daily; next follow-up scheduled for April 01, 2025; offered earlier follow-up if needed - Discussed that bupropion is not habit-forming or addictive; withdrawal symptoms such as headache or dizziness may occur if doses are missed for 2-3 days, but unlikely at current low dose - Advised to monitor mood and anxiety symptoms; encouraged to maintain current routine and coping strategies Headaches, dry mouth, fatigue, vivid dreams (side effects of bupropion): - Headaches, dry mouth, increased thirst, fatigue, and vivid dreams identified as side effects of bupropion; headaches gradually improving - Advised to monitor for persistence or worsening of side effects; instructed to report if vivid dreams become nightmares or problematic - If nightmares persist, consider switching to short-acting bupropion formulation; currently no change in medication due to overall improvement - Patient prefers current side effects over previous anxiety symptoms Use of clonazepam: - Reduced need for clonazepam; currently using 1 to 1.5 mg in the morning, rarely at night - Patient desires to taper and use clonazepam only as needed for breakthrough anxiety - Advised gradual reduction and use only for bad days; two refills available before March 2025; notify if additional refills needed Perimenopausal symptoms and irregular menstrual cycles: - Irregular menstrual cycles with spotting around the 9th and 15th, full period typically on the 20th; persistent low libido, possibly related to perimenopause and hormonal fluctuations - Advised to monitor menstrual cycle patterns and libido over the next 1-2 months; interest in sex may fluctuate with cycle, especially in first 2 weeks after bleeding - If symptoms persist, may be mood-related or multifactorial Alcohol sensitivity and intake: - Noted increased sensitivity to alcohol, experiences strong effects after one or two drinks; has reduced alcohol intake over past several months - Advised to continue limiting alcohol intake as tolerated Red vascular spot on nose: - Small red vascular spot on nose identified as benign superficial capillary bundle; no clinical concern - No intervention required Flonase refill: - Provided Flonase refill for 6 months supply; patient instructed to check with pharmacy for availability Colonoscopy referral: - Updated colonoscopy referral to preferred provider (Dr. Root in [facility]); coding coordinator notified of change; patient to call with preference if needed Plan Of Treatment Next Appt Details Provider Name:Dr. Nay abel, 04/01/2025 03:00:00 PM, [address] [place], [address], [phone] Insurance Providers Payer Name Payer Address Payer Phone Subscriber Number Group Number Insured Name Patient Relationship to Insured Coverage Start Date Coverage End Date [facility] [address] [place] [address] [id number] Tessa Mata Self - patient is the insured 4 Medical (General) History Medical History History ICD Code Nicotine dependence, cigarettes, with un specified nicotine-induced disorders F17.219 Generalized anxiety disorder F41.1 Restless legs syndrome G25.81 Migraine with aura, not intractable, wit hout status migrainosus G43.109 Insomnia, unspecified G47.00 Allergic rhinitis, unspecified J30.9 Dysmenorrhea, unspecified N94.6 Other specified abnormal uterine and vag inal bleeding N93.8 Tobacco use Z72.0 Low back pain, unspecified M54.50 Surgical History Surgery Date(Month/Year) Hernia repair 05/24/2016 Mammogram 12/21/2019
--- OUTSIDE RECORDS SUMMARY | 2025-01-14 07:19 | XMS_ITS | Encounter Summary ---
Author Organization [facility] Address [address] [place] [address] Care Team Providers Care Chain Dyer Name Role Phone Unavailable Primary Care Provider Unavailabl e Encounter Details Date Type Department Care Team (Late st Contact Info) Description 05/15/2024 Lab Requisition [facility] - DermPath Lab [address] [facility], [place] [address] Treasure Noguera MD [address] [place] [address] Social History Tobacco Use Types Packs/Day Years Used Date Smoking Tobacco: Never Assessed Comments Unknown Sex and Gender Information Value Date Recorded Sex Assigned at Not on file Legal Sex Female 6:57 AM DIRECTOR MUSEUM OR ZOO Gender Identity Not on file Sexual Orientation Not on file documented as of this encounter Plan of Treatment Not on file documented as of this encounter Procedures Procedure Name Priority Date/Time Associated Diagnosis Comments DERMATOPATHOLOGY Routine 05/15/2024 11:0 8 AM CDT documented in this encounter Results * DERMATOPATHOLOGY (05/15/2024 11:08 AM CDT) Case Report Dermatopathology Report Case: [id number] Authorizing Provider: Treasure Noguera MD Collected: 05/15/2024 11:08 AM Ordering Location: [facility] - Received: 05/16/2024 09:37 AM DermPath Lab Pathologist: Lyle Youssef MD Specimen: Skin, left scalp 5 6:07 PM CDT DERMATOPATHOLOGY LABORATORY Final Diagnosis Specimen A. 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 The specimen consists of a shave biopsy measuring 6x5x1 mm. Jar 0. 6:07 PM CDT DERMATOPATHOLOGY LABORATORY Microscopic Description Specimen A. SKIN, left scalp: This is a compound nevus. There is a lentiginous proliferation of melanocytes along the dermal-epidermal junction, highlighted by MART-1/Melan-A immunohistochemical staining. There is underlying fibroplasia of the papillary dermis. The intradermal component is bland in appearance and matures with depth. Original and deeper sections were reviewed. (Compound Get's Nevus) In addition, there is a solitary large vascular channel in the upper dermis. 6:07 PM CDT DERMATOPATHOLOGY LABORATORY Disclaimer An external and internal positive and negative controls are appropriate for the histochemical, immunohistochemical and immunofluorescence stain(s) in this case (if any), except where stated explicitly. The performance characteristics of the stain(s) cited in this report were developed and its performance characteristic determined by the Dermatopathology Laboratory at [facility], directed by Dr. Elia Youssef. These tests need not be, and therefore are not, approved by the [place] Food and Drug Administration. The tests are used for clinical purposes. Billing Codes Specimen Charges Stain Charges 81484 1 85719 1 6:07 PM CDT DERMATOPATHOLOGY LABORATORY Embedded Images 6:07 PM CDT DERMATOPATHOLOGY LABORATORY Pathology/Cytolo gy TISSUE SPECIMEN FROM SKIN / Unknown 05/15/2024 11:08 AM CDT 05/16/2024 9:37 AM CDT us Treasure Noguera MD LAB - PATHOLOGY/CYTOLOGY OR DERABLES Final Result DERMATOPATHOLOGY LABORATORY [facility] - Department of Dermatology [address], [address] [phone] documented in this encounter Visit Diagnoses Not on filedocumented in this encounter
--- OUTSIDE RECORDS SUMMARY | 2025-01-14 07:20 | XMS_ITS | Data Portability ---
Author Organization [id number] Address [address] [place] [address] Assessment Encounter Date Assessment Date Assessment LastModified by Organization Details LastModified Time 09/18/2024 09/18/2024 Menopausal Symptoms: - Discussed management options for micky-menopaus al symptoms, including lifestyle modifications . [email or web address] Not available 09/18/2024 16:26:10 Plan of Treatment Reminders Order Date Submit Date Provider Last Modified By Organization Details Last Modified Time Details Appointments ANNUAL- EST 15 2025 09:00A M FREDIS ZULETA MD Not available Not available Not available Lab HPV DNA, high-risk - Reflex to genotypin g if HPV Detected 2024 025 [facility] ([facility]), [address] , [address], [place], [address], 09/20/2024 10:07:44 pap, LB 2024 025 [facility] ([facility]), [address] , [address], [place], [address], 09/20/2024 10:07:44 Referral None recorded. Procedures None recorded. Surgeries None recorded. Imaging MAMMO, screening , bilateral 2024 025 [facility], [address], [address], [place], [address], 12/27/2024 13:29:19 Medication Orders None recorded. Patient TargetsNo targets recorded. Patient Instructions Encounter Date Encounter Id Patient Instructions Last Modified By Organization Details Last Modified Time 09/18/2024 [id number] - Continue regular exercise and maintain a healthy lifestyle. - Follow up for mammogram and MRI as scheduled. - Await results of Pap smear and HPV screening. [email or web address] Not available 09/18/2024 16:25:07 We discussed the management of menopausal symptoms, including lifestyle changes and the possibility of hormone therapy. We also reviewed the patient's screening schedule, emphasizing the importance of alternating mammograms with MRIs due to her family history and dense breast tissue. The patient was informed about the upcoming Pap smear and HPV screening, and we agreed to communicate the results once available. [email or web address] Not available 09/18/2024 16:25:07 Reason for Referral None Reported. Results Created Date Observation Date Name Description Value Unit Range Abnormal Flag Note LastModifiedBy Organization Detail LastModifiedTime 09/19/1909/20/2024 PAP TEST THIN PREP Pap test thin prep Negati ve for Intrae pithel ial Lesion or Malign sera normal ACCES KALYN #: [id number] Sourc e: Cervi raymond/E ndoce rvica l LMP: Date Taken : 09/18 Speci men Type: ThinP rep Vial Date Repor gayle: 2024 Clini raymond Data: Last Pap: wnl () Cytot ech: [place] on [place], CT( CP) Date Repor gayle: 2024 Speci men Adequ acy: Satis facto ry for evalu ation Endoc ervic al/tr ansfo rmati on zone compo nent prese nt Gener al Categ oriza tion: NEGAT DELTA FOR INTRA EPITH ELIAL LESIO N OR MALIG MARTIN This speci men has been audrey zed by the ThinP rep Imagi ng Syste m, an inter activ e compu ter syste m which andrew ts the lab in the scree yohana of ThinP rep Pap Test slide s. Follo wing imagi ng, the slide was revie wed by a Cytot echno logis t and/o r Patho logis t. Cervi raymond cytol ogy is a scree yohana test prima rily for squam ous cance rs and precu rsors and has assoc iated false -nega tive and false -posi tive resul ts. New techn ologi es such as liqui d-bas ed prepa ratio ns may decre ase but will not elimi tonie all false -nega tive resul ts. Regul ar sampl ing and follo w-up of unexp luis d clini raymond signs and sympt oms are recom staci d to minim ize false negat delta resul ts. D N A A S S A Y S R E P O R T TEST NAME RESUL TS ----- ---- ----- -- HPV High Risk Shonda alonso (TMA) ThinP rep Vial The human papil lomav irus (HPV) High Risk Shonda alonso is an FDA-a pprov ed in-vi tro ampli fied nucle ic acid test for the quali tativ e detec tion of E6/E7 viral mRNA. Resul ts shoul d be corre lated with patie nt prese ntati on, histo ry, cervi raymond cytol ogy and other clini raymond and labor atory findi ngs. See https ://CollegePostings/s freda/ defluz lt/fi les/2 018-0 3/AW- 33197 _002_ 01.pd f for stephany alonso. Test perfo rmed by [facility]is ts, [facility] d/b/a [facility], [address], [place] [address] , Kassy Wallace ra, DO, Labor atory [facility], [place]# [id number] HPV High Risk *HPV NOT DETEC GAYLE (TYPE S 16, 18, 31, 33, 35, 39, 45, 51, 52, 56, 58, 59, 66, 68) *HPV: The human papil lomav irus (HPV) High Risk Shonda alonso is an FDA-a pprov ed in-vi tro ampli fied nucle ic acid test for the quali tativ e detec tion of E6/E7 viral mRNA. Resul ts shoul d be corre lated with patie nt prese ntati on, histo ry, cervi raymond cytol ogy and other clini raymond and labor atory findi ngs. See https ://CollegePostings/s ites/ piper lt/fi les/2 018-0 3/AW- 57424 _002_ 01.pd f for [facility] er infor arlin alonso. Test perfo rmed by [facility] logis [facility] d/b/a [facility], [address], [place] [address] , Kassy Wallace ra, DO, [facility] [employer] [facility], CLIA# [id number] End of t Techn ical servi kenzie provi ded by [facility] iated [facility]o [facility] [employer], d/b/a [facility] roup, [address] [place] [address] Leonarda watson MD, [facility]. Case revie wed and diagn osis rende red at [facility] iated [facility]o [facility] [employer], d/b/a [facility], [address] [place] [address] Leonarda watson MD, [facility]. CONFI DENTI AL Not Available [facility] ([facility]) [address] [place] [address], [place], [address], 09/20/2024 10:07:44 09/19/19 25 09/19/2024 HPV HIGH RISK SCREE N (TMA) HPV high risk NOT DETECT ED normal Not Available [facility] [place] ([facility]) [address] [place] [address], [place], [address], 09/20/2024 10:07:44 Result Notes None recorded. Problems Name Problem SNOMED Code Status Onset Date Resolution Date Notes Provider Name and Address Organization Details Recorded Time Gastroesop hageal reflux disease 353016393 Active Acid Reflux/GE RD, Problem Code: 530.81; Problem Code Type: ICD-9; Not Available [facility] 12:05:21 History of abnormal cervical Papanicola ou smear 668107339 Active Abnormal Pap Smear, (2004 LSIL & HSIL) Startdate : '2004'; Problem Code Descripti on: 'Abnormal Pap Smear'; Not Available [facility] 12:05:22 Problem Notes None recorded. Procedures Surgical History Date Name Laterality Status Provider Name and Address Organization Details Recorded Time 01/13/20 24 Date of Last Mammogram completed Reema Cagle(TERM) [facility] 07/27/2024 11:24:45 06/24/19 23 Date of Last Pap Smear completed Reema Cagle(TERM) [facility] 07/27/2024 11:24:23 Conization of cervix completed Not Available [facility] 06/21/2024 12:35:51 introduction of Mirena coil completed Not Available [facility] 06/21/2024 12:35:51 colposcopy completed Not Available [facility] 06/21/2024 12:35:51 removal of Mirena coil completed Not Available [facility] 06/21/2024 12:35:51 hernia repair completed Not Available [facility] 06/21/2024 12:35:51 extraction of wisdom tooth completed Not Available [facility] 06/21/2024 12:35:52 Imaging Results None recorded. Procedure Notes None recorded. Medical Equipment None Reported. Allergies Allergen ID Allergen Name Allergen Category Reaction Reaction Severity Criticality Documentation Date Start Date Code Code System Note Provider Name and Address Organization Details Recorded Time 070885 Product containin g penicilli n (product) medicatio n hives Not available Not available 06/21/2024 71573 8001 SNOMED Karmen Oconnor [facility] 15:49:28 Medications Name Sig Start Date Stop Date Status Note LastModified by Organization Details LastModified Time Claritin 10 mg tablet Take 1 tablet every day by oral route. active Not Available Not Available No t Available apple cider vinegar 600 mg capsule Take by oral route. active Not Available Not Available No t Available Vitamin D active Not Available Not Radha ilable Not Available Multi-Vitamin active Not Available Not Available Not Available Probiotic active Not Available Not Radha ilable Not Available turmeric 400 mg capsule Take by oral route. active Not Available Not Available No t Available vitamin B12 2,500 mcg-folic acid 400 mcg disintegrating tablet Take by oral route. active Not Available Not Available No t Available Hair, Skin and Nails (biotin) 10,000 mcg chewable tablet Take by oral route. active Not Available Not Available No t Available Vitals Date Recorded Body height Body mass index (BMI) Body weight Systolic And Diastolic Provider Name and Address Organization Details Last Updated DateTime 09/18/2024 181.61 cm 20.9 kg/m2 28978.04 g 118/66 mm[Hg] Karmen Oconnor [facility] 09/18/2024 15:49:24 Social History Question Answer Notes LastModified by [employer] Details LastModified Time Tobacco Smoking Status Current Some Day Smoker Karmen Oconnor [facility] 09/18/2024 15:46:04 Do You Have An Advance Directive? No [email or web address] Information not available 09/18/2024 If You Are , What Was Your Level Of Alcohol Consumption Prior To ? None [email or web address] Information not available 09/18/2024 What Is Your Level Of Caffeine Consumption? Moderate Information not available 09/18/2024 What Type Of Diet Are You Following? CARBOHYDRATE [email or web address] Information not available 09/18/2024 What Is Your Relationship Status? [email or web address] Information not available 09/18/2024 At What Age Did You Start Smoking Tobacco? 12 [email or web address] Information not available 09/18/2024 How Much Tobacco Do You Smoke? No 1-2 Cigs A Day Information not available 09/18/2024 Sex: Female Functional Status Question Answer Note LastModified by Organizat ion Details LastModified Time How many times per week do you consume alcohol? Less than 1 time per week Information not available 09/18/2024 Do you use any illicit or recreational drugs? No [email or web address] Information not available 09/18/2024 What is your level of alcohol consumption? Occasional [email or web address] Information not available 09/18/2024 Are you currently employed? Yes [email or web address] Information not available 09/18/2024 What is your occupation? Note: [employer] Information not available 06/21/2024 What is your exercise level? Heavy Information not available 06/21/2024 Mental Status None recorded. Family History Relationship Description Onset Age of this Age Resolved Age Notes LastModified by Organization Details LastModified Time Maternal Grandfather Hypertensive disorder High Blood Pressu re Not available 06/21/2024 12:48:59 Mother Hypertensive disorder High Blood Pressu re Not available 06/21/2024 12:48:59 Paternal Grandmother Hypertensive disorder High Blood Pressu re Not available 06/21/2024 12:48:59 Paternal Grandmother Diabetes mellitus Diabet es Not available 06/21/2024 12:49:00 Mother Malignant neoplasm of breast mastec santos in 2023 Not available 09/18/2024 15:50:38 Mother Hypothyroidi sm Not available 2024 15:46:03 Father Diabetes mellitus [email or web address] Not available 2024 15:46:03 Medical History Condition Response ID-Other Y GI- Reflux/Ulcers Y Cancer- Genetic screening Gynecological History Statement/Question Response Flow Moderate Date of Last Mammogram 01/13/2024 History of Fibroids N Date of LMP 09/05/2024 Current Control Method: None History of Recurrent Ovarian Cysts N Age at first intercourse 16 HPV Vaccine Not Completed Date of Last HPV Test 06/23/2022 11 History of PCOS N History of Infertility N History of Cervical Dysplasia N History of Vulvar Dysplasia N Duration of Flow (days) Depends one rita h 3 days. Others I spot then stops the I get my period Current Control Method None Age at Menarche 11 History of Endometriosis N Frequency of Cycle (Q days) 27 Sexually Active? Y History of Abnormal PAP Y History of Dysmenorrhea N Menses Monthly Y Date of Last Pap Smear 06/23/2022 Sexual Problems? Y History of Sexually Transmitted Infectio n N Obstetrics History GPAL:G 3 P 2 0 1 2 Type Value Multiple Births 0 Full Term 2 Induced 1 Spontaneous 0 Premature 0 Living 2 Ectopics 0 Total 3 Past Encounters Encounter ID Performer Location Encounter Start Date Encounter Closed Date Diagnosis/Indication Diagnosis SNOMED-CT Code Diagnosis ICD10 Code Diagnosis IMO Codes Diagnosis Note [id number] FREDIS ALEGRIA RD, MD [id number] [facility] [address] [place] [address] 09/18/2024 15:35:38 09/18/2024 16:27:20 Screening mammography 53936191 Z12.31 - Plan to continue with regular mammograms and alternate with MRIs due to dense breast tissue and family history.Wi ll do mammo in Dec and try to get PA for MRI in June Screening for malignant neoplasm of cervix 529326563 Z12.4 - Pap smear to be conducted and results to be communicat ed to the patient. Human elsa lloma virus screening 304039059 Z11.51 - HPV screening to be conducted as part of routine preventati ve care. Health Concerns Section Related Observation LastModified by Organization Detai ls LastModified Time None Recorded Concern Status LastModified by Organization Details LastModified Time None Recorded Advance Directives Directive N: Payers Insurance Date Sequence Insurance Name Policy Number Policy Lynch Covered Member ID Lynch Member ID Guarantor Name 09/17/2024 1 [facility] (MEDICAID REPLACEMENT - HMO) Tessa Mata [id number] Tessa Mata 09/17/2024 1 [place] [employer] Tessa Mata [id number] Tessa Mata 09/15/2024 1 [facility] [id number] [id number] Tessa Mata 07/30/2024 1 *SELF PAY* Marivel Mata Notes Date Note Type Note Provider Name and Address Organization Details Recorded Time 09/18/2024 text/html 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 For urinary symptoms, patient reportsno hematuria. For vulvar complaints, patient reportsnone. For vaginal complaints, patient reportsnone.Breast symptomsFor breast, patient reportsno breast pain,no breast lump, andno nipple discharge.Endocrine symptomsFor sexual complaints, patient reportsdecreased libido(decreased libido).Preventative measuresFor preventive measures, patient reportsencourage self breast examination,encourage regular exercise,encourage no tobacco use, andencourage regular mammograms starting age 40.ROS as noted in the HPI The patient is a 44-year-old female presenting with menopausal symptoms and for routine preventative screenings. She reports experiencing hot flashes that are severe enough to disrupt her sleep and cause irritability. Additionally, she notes a decrease in libido and questions whether this is related to hormonal changes associated with menopause. The patient has a family history of breast cancer, which influences her screening schedule. Her last mammogram was in December, and she plans to alternate mammograms with MRIs due to her dense breast tissue and family history. She exercises daily and maintains a healthy lifestyle, which is encouraged to continue. - Regular menstrual cycles with occasional spotting before periods - No history of significant gynecological surgeries or hospitalizations The patient reports a decrease in libido and questions whether this is related to hormonal changes associated with menopause. She has been in a relationship for three years and expresses some uncertainty about her sexual interest. None of the symptoms bother her enough to want to consdier HRT. Retinal Surgeon offered per [facility] policy. Retinal Surgeon was DECLINED.Patient is here for an annual gynecological exam. No complaints. FREDIS CARABALLO MD [address], [place], [address], [facility] 09/18/2024 16:58:22 OBGyn Episode No OBEpisode recorded.
== END 2025-01-14 07:17 | disposition home or self-care (01) ==
PROVIDERS: PCP Family Medicine; Visit Provider Obstetrics & Gynecology
DX: Z12.31 Encounter for screening mammogram for malignant neoplasm of breast (principal); R92.8 Other abnormal and inconclusive findings on diagnostic imaging of breast
CPT/HCPCS: 77063; 77067

== ENCOUNTER 2025-02-06 12:39 | Outpatient (CLI) | payer OTHER, SELFPAY ==
--- OUTSIDE RECORDS SUMMARY | 2023-12-16 08:00 | XMS_ITS ---
Author Organization [facility] dicine Address [address] [place] [address] Care Team Providers Care Computer Scientist Name Role Phone Dr. aNy Seay Primary Care Provider [phone] REASON FOR VISIT 3-4mo f/u Vital Signs [...] 12/16/2023 Encounters Encounter Location Date Provider Diagnosis [address] [address] 12/16/2023 Dr. Nay Seay Anxiety disorder, unspecified [...] Nay abel, 04/01/2025 03:00:00 PM, [address], [place], [address], [phone] Progress Notes * Nafisa MATAaDOB:1980 (44 yo F)Acc No.[id number]:12/16/2023 Progress Notes Patient: Tessa Lara Provider: Jessica Seay MD :1980 A ge:43 Y S ex:Female Date:12/16/2023 Phone: Address:[address] [place], [place] [phone] Subjective: * Chief Complaints: * 3 -4mo [...] Electronic signature of Dr. Nay Seay on 02/06/2025 at 02:30 PM SALES ASSOCIATE CASHIER Sign off status: Pending * Provider: Jessica Seay MD Date: 1 Generated for Kristie hui/Jakob/Lucianoitting on: 04/09/2024 02:30 PM SALES ASSOCIATE CASHIER
--- OUTSIDE RECORDS SUMMARY | 2024-01-21 03:00 | XMS_ITS ---
Author Organization [facility] dicine Address [address] [place] [address] Care Team Providers Care Engineering Project Manager Name Role Phone Dr. Nay Seay Primary Care Provider [phone] Migration, Provider Unavailable Unavailable REASON FOR VISIT EMR-[facility]al[facility] Encounters Encounter Location Date Provider Diagnosis [facility] [address] [place] [address] 01/21/2024 Provider Migration Plan Of Treatment Medication Medication Name Sig Start Date Stop Date Notes Rizatriptan Benzoate 10 MG Tablet Oral; Duration: 30 11/12/2020 12/11/2020 Weimar Oil oral; Duration: 0 08/27/2021 11/14/2022 ,disc ontinuereason:D iscontinued *[facility]* Ipratropium [place] 0.06 % Solution 1 Nasal three times a day; Duration: 30 08/27/2021 09/02/2021 ,discontinuereason:I nsurance Coverage uckjpuo-wnym-rprwj-oreg -capryl oral; Duration: 0 08/27/2021 11/14/2022 ,discontinuere ason:D iscontinued *[facility]* Multivitamin oral; Duration: 0 10/16/2020 11/14/2022 ,disc ontinuereason:D iscontinued *[facility]* Naprosyn 500 MG Tablet 1 [...] 11/14/2022 ,discon tinuereason:D iscontinued *Pick strength-form from [facility] for eRX* Apple Cider Vinegar oral; Duration: 0 10/16/2020 ,discontinuereason:D iscontinued *Pick strength-form from [facility] for eRX* clonazePAM 0.5 MG Tablet 1 Oral two times a day; Duration: 11/11/2023 11/11/2023 Rx Refill Request,discontinuer sandy:Refilled Fluticasone Propionate 50 MCG/ACT Suspension Nasal; Duration: 30 08/08/2023 10/06/2023 Cranberry oral; Duration: 0 10/16/2020 11/14/2022 ,discon tinuereason:D iscontinued *Pick strength-form from [facility] for eRX* busPIRone HCl 5 MG Tablet 1 Oral three times a day; Duration: 30 11/15/2022 12/23/2022 ,discontinuereason:A llergic Reaction,PRN Reason:for anxiety Gabapentin 100 MG Capsule 1 Oral every night at bedtime; Duration: 30 02/12/2022 07/28/2022 ,discontinuereason:D iscontinued Azelastine HCl 137 MCG/SPRAY Solution Nasal; Duration: 30 10/12/2021 11/10/2021 Vitamin D2 oral; Duration: 0 10/16/2020 11/14/2022 ,discon tinuereason:D iscontinued *Pick strength-form from [facility] [employer] for eRX* Mirena intrauterine; Duration: 0 10/16/2020 10/19/2020 ,discontinuereason:D iscontinued *Reorder from [facility] for eRx and Interaction Alerts* Symbicort 160-4.5 MCG/ACT Aerosol 1 Inhalation two times a day; Duration: 0 04/06/2023 07/24/2023 ,discontinuereason:D iscontinued Benzonatate 200 MG Capsule 1 Oral three times a day; Duration: 0 03/28/2023 03/28/2023 ,PRN Reason:for cough Next Appt Details Provider Name:Dr. Nay abel, 04/01/2025 03:00:00 PM, [address] [place], [address], [phone] Progress Notes * Alaina MATAB:1980 (44 yo F)Acc No.[id number]:01/21/2024 Patient: Tessa BURROWS :1980 A ge:43 Y S ex:Female Phone: Address:[address] [place] [address], [phone] * Refills Stop Azelastine HCl Solution, 137 [...] 20, 20 Stop Multivitamin, oral, 0 Stop Weimar Oil, oral, 0 Stop lywymwm-fvoo-joedc-oreg-capryl, oral, 0 Stop busPIRone HCl Tablet, 5 [...] 50 MCG/ACT, Nasal, 16, 30 Stop Ipratropium [place] Solution, 0.06 %, Nasal, 1, 1, three [...]
--- OUTSIDE RECORDS SUMMARY | 2024-01-22 03:00 | XMS_ITS ---
Author Organization [facility] Address [address] [place] [address] Care Team Providers Care Psychology Technician Name Role Phone Dr. Nay Seay Primary Care Provider [phone] Migration, Provider Unavailable Unavailable Allergies Allergen (clinical [...] 12 Encounters Encounter Location Date Provider Diagnosis [facility] [address] [place] [address] 01/22/2024 Provider Migration Plan Of Treatment Next Appt Details Provider Name:Dr. Nay abel, 04/01/2025 03:00:00 PM, [address] [facility], [place], [address], [phone] Progress Notes * Alaina MATAB:1980 (44 yo F)Acc No.[id number]:01/22/2024 Patient: Tessa BURROWS :1980 A ge:43 Y S ex:Female Phone: Address:[address] [place] [address], [phone] Subjective: * Chief Complaints: * E MR-Oswaldo [...]
--- NOTE | ~2025-02-06 | MM_ITS ---
EXAMINATION: MM diagnostic sarah RT w misha INDICATION: 44-year old female; BI-RADS 0, callback to evaluate Right breast calcifications. COMPARISON: 01/14/2025 through 01/05/2021 TECHNIQUE: Digital breast tomosynthesis True lateral view and magnification CC and ML views of Right breast were obtained with computer-aided detection to assist in interpretation of the study. FINDINGS: The breasts are heterogeneously dense, which may obscure small masses. The group of microcalcifications seen in the superior central Right breast on the screening mammogram demonstrate layering, compatible with benign microcyst type calcifications. IMPRESSION: Right breast benign milk of calcium calcifications. RECOMMENDATION: Annual screening mammography due in 12 months. BI-RADS 2, BENIGN Reviewed, dictated and finalized at location A. STAFF
--- OUTSIDE RECORDS SUMMARY | 2025-02-06 14:31 | XMS_ITS | Clinical Summary ---
Author Organization [facility] Address [address] [place] [address] Care Team Providers Care Reticle Printer Name Role Phone Nay Seay MD Primary Care Provider Allergies Active Allergy Reactions Criticality Noted Date Comments Buspirone Headache 11/09/2024 Cephalosporins Other (see comment) 07/13/2013 Mouth/facial numbness Penicillins Rash Low 11/09/2024 Medications buPROPion XL (WELLBUTRIN XL) 150 MG 24 hr tablet Take 1 tablet (150 mg total) by mouth every morning. 11/05/2024 Active clonazePAM (KLONOPIN) 0.5 MG tablet TAKE 1 BY MOUTH TWICE A DAY NEEDED 10/30/2024 Active fluticasone propionate (FLONASE) 50 MCG/ACT nasal spray 1 spray by Each Nostril route daily. 11/06/2024 Active vitamin D3 (CHOLECALCIFERO L) 75 mcg Tab tablet Take 50 mcg by mouth daily. Active Turmeric (QC TUMERIC COMPLEX) 500 MG Cap Take 1,500 mg by mouth daily. Active vitamin B-12 (CYANOCOBALAMIN ) (CYANOCOBALAMIN ) 1000 mcg tablet Take 1 tablet (1,000 mcg total) by mouth daily. Active PREBIOTIC PRODUCT OR Take 2 tablets by mouth daily. Active Resolved Problems Problem Noted Date Diagnosed Date Resolved Date Screening for colon cancer 11/09/2024 0 11/12/2024 Screening for colon cancer 11/09/2024 0 11/19/2024 Screening for colon cancer 11/09/2024 1 Screening for colon cancer 11/09/2024 1 Screening for colon cancer 11/09/2024 1 02/24/2024 Screening for colon cancer 11/09/2024 1 03/02/2024 Encounters Date Type Department Care Team Description 12/25/2024 11:32 AM PLATE GRINDER Anesthesia Event [facility] [place] [address] [place] [address] Yakov Gómez CRNA Schuessler, Edward, MD 12/25/2024 11:16 AM PLATE GRINDER - 12/25/2024 11:40 AM PLATE GRINDER Surgery [facility] [address] [place] [address] Saul Felix MD COLONOSCOPY 12/25/2024 10:08 AM PLATE GRINDER - 12/25/2024 12:38 PM PLATE GRINDER Hospital Encounter [facility] [address] [place] [address] Saul Felix MD Discharge Disposition: Home or Self Care (Routine Discharge) 12/25/2024 Travel 12/12/2024 Travel 11/09/2024 Telephone [facility] Surgery - [address], [address] [place] [address] Saul Felix MD Schedule Surgery 11/09/2024 Prep for Procedure [facility] - [address], [address] [place] [address] Saul Felix MD from Last 3 Months Family History Medical History Relation Comments Diabetes Father Hypertension Father Cancer Maternal Grandfather colon Cancer Mother breast and melan belinda Hypertension Mother Relation Status Comments Father Maternal Grandfather Mother Social History Tobacco Use Types Packs/Day Years Used Date Smoking Tobacco: Every Day Cigarettes Passive Smoke Exposure: Never Smokeless Tobacco: Never Tobacco Cessation:Ready to Q uit: Not Asked; Counseling Given: Not Answered Alcohol Use Standard Drinks/Week Comments Yes 0 (1 standard drink = 0.6 oz pur e alcohol) socially on weekends Comments No Sex and Gender Information Value Date Recorded Sex Assigned at Not on file Legal Sex Female 6:47 PM CDT Gender Identity Not on file Sexual Orientation Not on file Last Filed Vital Signs Vital Sign Reading Time Taken Comments Blood Pressure 105/58 12/25/2024 12:09 PM PLATE GRINDER Pulse 58 12/25/2024 12:09 PM PLATE GRINDER Temperature 36.5 C (97.7 F) 12/25/2024 10:45 AM PLATE GRINDER Respiratory Rate 16 12/25/2024 12:09 PM PLATE GRINDER Oxygen Saturation 98% 12/25/2024 12:09 PM PLATE GRINDER Inhaled Oxygen Concentration - - Weight 68 kg (150 lb) 12/25/2024 10:43 AM PLATE GRINDER Height 188 cm (6' 2) 12/25/2024 10:43 AM PLATE GRINDER Body Mass Index 19.26 12/25/2024 10:43 AM PLATE GRINDER Plan of Treatment Health Maintenance Due Date Last Done Comments Cervical Cancer Screening Pap Smear (Age 30 to 64) Every 3 Years 1978 Annual Physical 1981 Hepatitis C 1996 Hepatitis B Vaccines (1 of 3 - 19+ 3-dose series) 1997 Pneumococcal Vaccine: Pediatrics (0 to 5 Years) and At-Risk Patients (6 to 49 Years) (1 of 2 - PCV) 1997 Cervical Cancer Screening Pap with HPV Testing (Age 30 to 64) Every 5 Years 2008 Cervical Cancer Screening with HPV 2008 Mammogram Screening 12/20/2021 12/21/2019 PHQ-2 (Physician [place]) 02/22/2024 COVID-19 Vaccine ( - season) 2024 Influenza Adult (#1) 2024 DTaP, Tdap and Td Vaccines (4 - Td or Tdap) 05/23/2030 05/23/2020, 02/28/2009, 02/22/2009, Additional history exists Colorectal Cancer Screening Colonoscopy (10 Years) 12/25/2034 12/25/2024 Hepatitis A Vaccines Aged Out No long er eligible based on patient's age to complete this topic Meningococcal B Vaccine Aged Out No l onger eligible based on patient's age to complete this topic Meningococcal Vaccine Aged Out No juan yamil eligible based on patient's age to complete this topic RSV Immunizations Under 20 Months Aged Out No longer eligible based on patient's age to complete this topic Procedures Procedure Name Priority Date/Time Associated Diagnosis Comments COLONOSCOPY FLX DX W/COLLJ SPEC WHEN PFRMD 12/25/2024 11:31 AM PLATE GRINDER Screening for colon cancer COLONOSCOPY Routine 12/25/2024 10:12 AM PLATE GRINDER MG SCREENING W PINEDA NICOLASA DIGI Routine 12/21/2019 11:07 AM CDT Visit for screening mammogram from Last 3 Months or Most Recently Relevant to Health Maintenance Results * MG SCREENING W PINEDA NICOLASA DIGI (12/21/2019 11:07 AM CDT) Anatomical Region Laterality Modality Breast Bilateral Mammography 12/21/2019 11:2 6 AM CDT Impressions 12/21/2019 11:30 AM CDT IMPRESSION: No mammographic evidence of malignancy. . RECOMMENDATION: Annual screening mammography bilaterally in 12 months. BI-RADS 2. Interpreted By: Orville Glover, 12/21/2019 11:26 AM Narrative 12/21/2019 11:30 AM CDT EXAMINATION: MG SCREENING W PINEDA NICOLASA DIGI INDICATIONS: Screening TECHNIQUE: Digital full field CC and MLO screening mammography bilaterally to include 3-D Tomosynthesis technique. This study was read with the assistance of a computer-aided detection system. HISTORY: No reported personal or first degree family history of breast cancer. No reported prior breast procedure or current breast complaint. COMPARISON: None. Baseline examination. TISSUE DENSITY: The breasts are heterogeneously dense, which may obscure small masses. FINDINGS: Few typically benign round calcifications. No suspicious microcalcification, mass, or focal asymmetry. No architectural distortion. No axillary adenopathy. Marychuy Barnett MD MAMMO Final Resul t from Last 3 Months or Most Recently Relevant to Health Maintenance Insurance Care Teams Reticle Printer Relationship Specialty Start Date End Date Nay Seay MD [address] [place] [address] PCP - General FAMILY PRACTICE 11/23/19
--- OUTSIDE RECORDS SUMMARY | 2025-02-06 14:31 | XMS_ITS | Patient Health Record ---
Author Organization [facility] Address [address] [place] [address] Care Team Providers Care Chief Nuclear Medicine Technologist Name Role Phone Dr. Nay Seay Primary Care Provider [phone] Allergies Allergen (clinical drug ingredient) Drug/Non Drug Allergy documented on EMR Reaction Allergy Type Onset Date Status buspirone busPIRone headache Drug Allergy 12/23/2022 Active Substance with penicillin structure and antibacterial mechanism of action (substance) Penicillins Unknown Drug Allergy 10/16/2020 Active Results Component Value Reference Range Flag Notes Hemoglobin A1c {Glycosylated } Reviewed date:10/06/2024 01:41:27 PM Interpretation: Performing Lab: Notes/Report: Gas Engine Mechanic: Don Michele [address] Test Performed by: Hemoglobin A1c 5.3 <=6.4 % Hemoglobin A1C < 5.7% = Normal 5.7-6.4% = Increased risk for future diabetes >=6.5% = Diabetes eAvg Glucose 105 <=117 mg/dL eAG Reference Range <117 mg/dL = Normal 117-137 mg/dL = Increased Risk For Future Diabetes >137 mg/dL = Diabetes T4 Free Reviewed date:10/06/2024 01:41:27 PM Interpretation: Performing Lab: Notes/Report: Gas Engine Mechanic: Don Michele [address] Test Performed by: T4 Free 0.85 0.60-1.70 ng/dL CBC w Auto Diff Reviewed date:10/06/2024 01:41:27 PM Interpretation: Performing Lab: Notes/Report: Test Performed by: [address] [address] Gas Engine Mechanic: Don Michele DO WBC 5.1 4.0-11.7 K/mcL RBC 4.66 3.80-5.41 x10*6/mcL Hgb 14.8 11.3-15.2 g/dL Hct 43.6 33.2-45.3 % MCV 93.5 79.5-98.1 fL MCH 31.8 27.0-34.2 pg MCHC 34.0 31.8-35.3 g/dL RDW 12.6 12.0-16.4 % Platelets Not Performed 149-393 Quantitative platelet count not reported due to the presence of many platelet clumps, which tend to render the total count un-floor representative of in vivo levels. Suggest redraw in a Blue-Top tube. MPV Not Performerd 7.0-11.0 fL Neutro Auto 43.0 45.3-79.0 % L Lymph Auto 45.6 11.8-45.9 % [place] Auto 7.7 4.4-12.0 % Eosinophil Auto 2.4 0.0-6.3 % Basophil Auto 1.3 0.2-1.6 % Neutro Absolute 2.2 2.4-8.4 x10*3/mcL L Lymph Absolute 2.3 0.8-3.7 x10*3/mcL [place] Absolute 0.4 0.3-1.1 x10*3/mcL Eos Absolute 0.1 0.0-0.5 x10*3/mcL Baso Absolute 0.1 0.0-0.1 x10*3/mcL Comprehensive Metabolic Pane l Reviewed date:10/06/2024 01:41:27 PM Interpretation: Performing Lab: Notes/Report: Gas Engine Mechanic: Don Michele DO [address] [place] [id number] [place] [address] Test Performed by: Glucose Lvl 81 74-109 mg/dL ADA risk [...] Lab: Notes/Report: Test Performed by: [place] [address] Gas Engine Mechanic: Don Michele DO Cholesterol Total 191 <=199 [...] Interpretation: Performing Lab: Notes/Report: Test Performed by: [place] [id number] Gas Engine Mechanic: Don Michele DO TSH 1.28 0.45-5.33 mcIU/mL MAMMO EXTERNAL GENERIC Reviewed date:01/21/2025 01:27:10 PM Interpretation:abnormal; additional testing ordered Performing Lab: Notes/Report: abnormal; additional testing ordered INACTIVE Morphology Reviewed date:10/06/2024 01:41:28 PM Interpretation: Performing Lab: Notes/Report: Test Performed by: [place] [id number] Gas Engine Mechanic: Don Michele DO Plt Estimation Adequate Adequate Platelet Clumps 3+ A Reason For Referral Reason Dr. Felix in [facility] please - updated today 11/05 with pt's choice Diagnosis 1 Screening for colon cancer (Z12.11) Referral Organization [facility] Referring Provider First Name Dr. Tee Referring Provider Last Name [place] Referring Provider [facility] Referred Provider Specialty Gastroentero logy General Notes MitulAdelita st 0 11/05/2024 02:46:25 PM CDT >Referral faxed to Dr. Felix [phone], Josey Doss 12/25/2024 09:18:59 AM COMPUTER SYSTEMS SOFTWARE ARCHITECT >consult note in chart. Referral Priority Routine [...] : Historical information -from other registry Source [facility] Code: : Tdap Unknown 05/23/2020 Administered ,sourcename : Historical information -from other registry Source [facility] Code: : Social History Tobacco Use: Social [...] Problem Status W/U Status Risk Notes Problem Allergic rhinitis (71908316) Allergic rhinitis, unspecified (J30.9) 7 Active confirmed Problem Normal body mass index (43483655) Body mass index (BMI) 22.0-22.9, adult (Z68.22) 3 Active confirmed Problem Tobacco use (059159956) Tobacco use (Z72.0) 3 Active confirmed Problem Stress at work (finding) (879906525) Other physical and mental strain related to work (Z56.6) 3 Active confirmed Problem Disorder of female genital organs (876072987) Other specified conditions associated with female genital organs and menstrual cycle (N94.89) 4 Active confirmed Problem Abnormal vaginal bleeding (286717541) Other specified abnormal uterine and vaginal bleeding (N93.8) 4 Active confirmed Problem Insomnia (343024946) Insomnia, unspecified (G47.00) 4 Active confirmed Problem Migraine with aura (1889847) Migraine with aura, not intractable, without status migrainosus (G43.109) 1 Active confirmed Problem Restless legs syndrome (30097585) Restless legs syndrome (G25.81) 2 Active confirmed Problem Anxiety disorder (180125733) Anxiety disorder, unspecified (F41.9) 2 Active confirmed Problem Generalized anxiety disorder (23236333) Generalized anxiety disorder (F41.1) 3 Active confirmed Problem Tobacco user (979192191) Vaping nicotine dependence, tobacco product (F17.290) Active confirmed Problem Low back pain (232462980) Low back pain, unspecified (M54.50) 4 Active confirmed Problem Dysmenorrhea (519679959) Dysmenorrhea, unspecified (N94.6) 4 Active confirmed Vital Signs Heart Rate 82 [...] N/A Encounters Encounter Location Date Provider Diagnosis [address] [address] 04/11/2024 Dr. Nay Seay Chronic allergic rhinitis J30.9 ; Anxiety disorder, unspecified F41.9 ; Lumbar spondylosis M47.816 and Vaping nicotine dependence, tobacco product F17.[address] [address] 07/09/2024 Dr. Nay Seay Anxiety disorder, unspecified F41.9 ; Inflamed seborrheic keratosis L82.0 and Neoplasm of uncertain behavior of skin D48.[address] [address] 10/10/2024 Dr. Nay Seay Anxiety disorder, unspecified F41.9 ; Severe depression F32.2 ; Family history of cancer Z80.9 ; Tobacco abuse Z72.0 ; Screening for colon cancer Z12.11 and Migraine with aura, not intractable, without status migrainosus G43.[address] [address] 11/05/2024 Dr. Nay Seay Generalized anxiety disorder F41.1 ; Allergic rhinitis, unspecified J30.9 ; Donato angioma D18.01 and Decreased libido R68.[address] [address] 02/10/2024 Dr. Nay Seay Generalized anxiety disorder F41.[address] [address] 03/27/2024 Dr. Nay Seay Generalized anxiety disorder F41.[address] [address] 04/12/2024 Dr. Nay Seay [address] [address] 07/02/2024 Dr. Nay Seay Generalized anxiety disorder F41.[address] [address] 10/05/2024 Dr. Nay Seay Hyperglycemia, unspecified R73.9 [...] F41.9) 42 mins spent face to face. 07/09/2024 Anxiety disorder, unspecified (ICD-10 - F41.9) continue clonazpam. 07/09/2024 Inflamed seborrheic keratosis (ICD-10 - L82.0) 07/02/2024 Generalized anxiety disorder (ICD-10 - F41.1) 04/11/2024 Anxiety disorder, unspecified (ICD-10 - F41.9) no change in treatment.; Never took the doxepin. continues on clonazepam. 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 - Suggest fmic-vht-nyqyonv eye drops as an alternative to the [...] vitamins like titanium dioxide, suggest she visit R17 for comparable vitamins. 07/09/2024 Other Spot on [...] definitive biopsy. - Recommend returning to the radiation officer for further evaluation and possible re-biopsy. If the radiation officer does not address the issue, consider having the lesion removed and sent for biopsy at our facility. The lesion may need to be shaved off and cauterized. Allergies - Possible allergies to trees, especially in the spring, causing throat discomfort and other symptoms. - Continue using Flonase daily. Consider allergy testing at [facility] in [place] if symptoms persist and are bothersome. - [...] or Dr. Hunter start wellbutrin [facility]. increase clonazepam to 0.5 mg 1.5 [...] mammogram and breast MRI, as coordinated by intake counselor. Provided reassurance regarding normal laboratory results and [...] to preferred provider (Dr. Root in [facility]); research program coordinator notified of change; patient to call with preference if needed Plan Of Treatment Next Appt Details Provider Name:Dr. Nay abel, 04/01/2025 03:00:00 PM, [address] [facility], [place], [address], [phone] Insurance Providers Payer Name Payer Address Payer Phone Subscriber Number Group Number Insured Name Patient Relationship to Insured Coverage Start Date Coverage End Date [facility] [address] [place] [address] [id number] Tessa Mata Self - patient is the insured 10/01/202 4 Medical (General) History Medical History History [...]
--- OUTSIDE RECORDS SUMMARY | 2025-02-06 14:31 | XMS_ITS | Encounter Summary ---
Author Organization [facility] Address [address] [place] [address] Care Team Providers Care Inspector Aluminum Boat Name Role Phone Unavailable Primary Care Provider Unavailabl e Encounter Details Date Type Department Care Team (Late st Contact Info) Description 05/15/[address] [facility] - DermPath Lab [address] [facility] [place] [address] Treasure Noguera MD [address] [facility] [address] [place]PT [place] [address] Social History Tobacco Use Types Packs/Day Years Used Date Smoking Tobacco: Never Assessed Comments Unknown Sex and Gender Information Value Date Recorded Sex Assigned at Not on file Legal Sex Female 6:57 AM OFFAL ROLLER Gender Identity Not on file Sexual Orientation Not on file documented as of this encounter Plan of Treatment Not on file documented as of this encounter Procedures Procedure Name Priority Date/Time Associated Diagnosis Comments DERMATOPATHOLOGY Routine 05/15/2024 11:0 8 AM CDT documented in this encounter Results * DERMATOPATHOLOGY (05/15/2024 11:08 AM CDT) Case Report Dermatopathology Report Case: [id number] Authorizing Provider: Treasure Noguera MD Collected: 05/15/2024 11:08 AM Ordering Location: [facility] - Received: 05/16/2024 09:37 AM [...] characteristic determined by the Dermatopathology Laboratory at [facility], directed by Dr. Elia Youssef. These tests need not be, and therefore are not, approved by the [place] Food and Drug Administration. The tests are used for clinical purposes. Billing Codes Specimen Charges Stain Charges 20955 1 51465 1 6:07 PM CDT DERMATOPATHOLOGY LABORATORY Embedded Images 6:07 PM CDT DERMATOPATHOLOGY LABORATORY Pathology/Cytolo gy TISSUE SPECIMEN FROM SKIN / Unknown 05/15/2024 11:08 AM CDT 05/16/2024 9:37 AM CDT us Treasure Noguera MD LAB - PATHOLOGY/CYTOLOGY OR DERABLES Final Result DERMATOPATHOLOGY LABORATORY [facility] - Department of Dermatology [address], [address] [phone] documented in this encounter Visit Diagnoses Not on filedocumented in this encounter
--- OUTSIDE RECORDS SUMMARY | 2025-02-06 14:31 | XMS_ITS | Clinical Summary ---
Author Organization [facility] [employer] Address [address] [place] [address] Care Team Providers Care Ui Engineer Name Role Phone Unavailable Primary Care Provider Unavailabl e Source Comments [facility] [employer],non-owned Affiliates and Associated Physician Practices is amultiple site organization consisting of ambulatory clinics and hospital sitesin [place], [place], [place] and [place]. This disclosure is being madepursuant to the Care Everywhere program and may not contain all information available regarding this patient. Last updated 17.[facility] [employer] Social History Tobacco Use Types Packs/Day Years Used Date Smoking Tobacco: Never Assessed Comments Unknown Sex and Gender Information Value Date Recorded Sex Assigned at Not on file Legal Sex Female 6:57 AM SAFETY CONSULTANT Gender Identity Not on file Sexual Orientation [...] of 3 - 19+ 3-dose series) 1997 PAP SMEAR 08/06/1999 DEPRESSION SCREENING 02/22/2024 COVID-19 VACCINE (1 - [...]
== END 2025-02-06 12:40 | disposition home or self-care (01) ==
PROVIDERS: PCP Family Medicine; Visit Provider Obstetrics & Gynecology
DX: R92.8 Other abnormal and inconclusive findings on diagnostic imaging of breast (principal)
CPT/HCPCS: 77061; 77065; G0279